=== PATIENT | female | born 1960 | race Caucasian/White ===

== ENCOUNTER 2018-11-04 19:44 | Emergency (ER) | payer MEDICAID, OTHER ==
[~2018-11-04] VITALS: Ht 157.5 cm; Wt 82.6 kg
--- NOTE | 2018-11-04 20:07 | ED Chest Pain ---
General Chief Complaint: Chest Pain Stated Complaint: CHEST PAIN Source: patient, EMS History of Present Illness Date Seen by Provider: Nov 04, 2018 Time Seen by Provider: 20:06 Initial Comments 58-year-old female presenting with complaints of chest pain and high blood pressure. She states that she feels like she had eaten to many cinnamon rolls tonight and that her COPD was flared up. She reports having had a heart attack when she was in her 20s. She reports that she was not having any of those symptoms or having a sensation tonight like when she had a heart attack in her 20s. She has not been taking any medicine for blood pressure as well as she has been having difficulty sleeping because she is out of her blood pressure medicine and the Seroquel she takes at nighttime to help her rest. She recently moved here from [facility] and has not established with a new provider locally. She is limited on getting to the local provider because she does not have a car and she is dependent on getting around in her motorized scooter. She states that she was not having any nausea tonight and was feeling much better after she got a dose of nitroglycerin which brought her blood pressure down. She can not remember all of her medicines that she takes but feels that they should be in the computer, however she has not been here before and no medicines are available in the computerized medical record for her. Allergies and Home Medications Home Medications Lisinopril 20 Mg Tablet, 20 MG PO DAILY Prescribed by: GLENDA MACIAS on 11/04/182249 Quetiapine Fumarate 300 Mg Tablet, 300 MG PO HS Prescribed by: GLENDA MACIAS on 11/04/182249 Patient Home Medication List Home Medication List Reviewed: Yes Review of Systems Review of Systems Constitutional: No chills, No dizziness, No fever, No malaise EENTM: No Blurred Vision, No Double Vision, No Nose Congestion, No Throat Pain Respiratory: Cough (chronic), Shortness of Air (chronic), Wheezing (chronic) Cardiovascular: Chest Pain (tonight but improved after nitroglycerin and bp came down) Gastrointestinal: Denies Abdominal Pain, Denies Diarrhea, Denies Nausea, Denies Vomiting Genitourinary: No Symptoms Reported Musculoskeletal: no symptoms reported Skin: no symptoms reported Psychiatric/Neurological: See HPI Past Vbaonxp-Zrqqdi-Grghag Hx Past Med/Social Hx: Reviewed Nursing Past Med/Soc Hx Patient Social History Recent Foreign Travel: No Contact w/Someone Who Travel: No Past Medical History Respiratory: Yes COPD Cardiac: Yes Heart Attack (in her 20s), Hypertension Psychosocial: Yes Sleep Difficulties, Bipolar Physical Exam Vital Signs Vital Signs - First Documented 11/04/18 20:01 Temp 98.3 Pulse 88 Resp 15 B/P (MAP) 203/85 (124) Pulse Ox 95 O2 Delivery Room Air Capillary Refill : Height, Weight, BMI Height: '" Weight: lbs. oz. kg; BMI Method: General Appearance: No Apparent Distress, WD/WN, Obese HEENT: PERRL/EOMI, Pharynx Normal Neck: Full Range of Motion, Normal Inspection, Non Tender, Supple; No Carotid Bruit Respiratory: Chest Non Tender, Lungs Clear, Normal Breath Sounds; No No Accessory Muscle Use, No No Respiratory Distress Cardiovascular: Regular Rate, Rhythm, Normal Peripheral Pulses Gastrointestinal: Normal Bowel Sounds, No Pulsatile Mass, Non Tender, Soft Rectal: Deferred Extremity: Normal Capillary Refill, Normal Inspection, Normal Range of Motion, Non Tender Neurologic/Psychiatric: Alert, Oriented x3, No Motor/Sensory Deficits Skin: Normal Color, Warm/Dry Progress/Results/Core Measures Results/Orders Lab Results Laboratory Tests Test 11/04/18 20:18 Range/Units White Blood Count 6.6 4.3-11.0 10^3/uL Red Blood Count 5.33 4.35-5.85 10^6/uL Hemoglobin 14.9 11.5-16.0 G/DL Hematocrit 45 35-52 % Mean Corpuscular Volume 85 80-99 FL Mean Corpuscular Hemoglobin 28 25-34 PG Mean Corpuscular Hemoglobin Concent 33 32-36 G/DL Red Cell Distribution Width 15.0 H 10.0-14.5 % Platelet Count 123 L 130-400 10^3/uL Mean Platelet Volume 10.2 7.4-10.4 FL Neutrophils (%) (Auto) 65 42-75 % Lymphocytes (%) (Auto) 27 12-44 % Monocytes (%) (Auto) 6 0-12 % Eosinophils (%) (Auto) 1 0-10 % Basophils (%) (Auto) 1 0-10 % Neutrophils # (Auto) 4.3 1.8-7.8 X 10^3 Lymphocytes # (Auto) 1.8 1.0-4.0 X 10^3 Monocytes # (Auto) 0.4 0.0-1.0 X 10^3 Eosinophils # (Auto) 0.1 0.0-0.3 10^3/uL Basophils # (Auto) 0.0 0.0-0.1 10^3/uL Prothrombin Time 13.7 12.2-14.7 SEC INR Comment 1.0 0.8-1.4 Activated Partial Thromboplast Time 30 24-35 SEC Sodium Level 148 H 135-145 MMOL/L Potassium Level 3.0 L 3.6-5.0 MMOL/L Chloride Level 105 98-107 MMOL/L Carbon Dioxide Level 28 21-32 MMOL/L Anion Gap 15 H 5-14 MMOL/L Blood Urea Nitrogen 13 7-18 MG/DL Creatinine 0.59 L 0.60-1.30 MG/DL Estimat Glomerular Filtration Rate > 60 BUN/Creatinine Ratio 22 Glucose Level 122 H 70-105 MG/DL Calcium Level 9.3 8.5-10.1 MG/DL Corrected Calcium 9.1 8.5-10.1 MG/DL Magnesium Level 1.9 1.8-2.4 MG/DL Total Bilirubin 0.4 0.1-1.0 MG/DL Aspartate Amino Transf (AST/SGOT) 12 5-34 U/L Alanine Aminotransferase (ALT/SGPT) 6 0-55 U/L Alkaline Phosphatase 123 40-136 U/L Troponin T 10 <=10 NG/L Pro-B-Type Natriuretic Peptide 914.1 H <75.0 PG/ML Total Protein 6.6 6.4-8.2 GM/DL Albumin 4.3 3.2-4.5 GM/DL My Orders Orders - GLENDA MACIAS MD Cbc With Automated Diff (11/04/18 20:04) Magnesium (11/04/18 20:04) Chest 1 View Ap/Pa Only (11/04/18 20:04) Ekg Tracing (11/04/18 20:04) Comprehensive Metabolic Panel (11/04/18 20:04) Protime With Inr (11/04/18 20:04) Partial Thromboplastin Time (11/04/18 20:04) O2 (11/04/18 20:04) Monitor-Rhythm Ecg Trace Only (11/04/18 20:04) Ed Iv/Invasive Line Start (11/04/18 20:04) Troponin T (11/04/18 20:04) Probnp Fs (11/04/18 20:04) Vital Signs/I&O 11/04/18 11/04/18 20:01 22:53 Temp 98.3 Pulse 88 78 Resp 15 13 B/P (MAP) 203/85 (124) 169/74 (105) Pulse Ox 95 94 O2 Delivery Room Air Room Air Progress Progress Note #1: Progress Note Obtain electrocardiogram as well as basic labs and chest x-ray. Her blood pressure has been staying down after the single nitroglycerin and she has had no further pain. Her oxygen level has been staying stable and she has not been having increased cough or shortness of breath while here in the emergency department. Progress Note #2: Progress Note ECG, Labs and CXR are all stable for her without evidence of acute myocardial infarction, pneumonia or heart failure. Pt is adamant that she is going home and that she feels fine now and that she does not need to be in the hospital or in the ED any longer. I updated her about the results and explained that she needs to get in with a provider to follow-up on everything. I counseled her on the test results and stress that she needed to be on blood pressure medicine. I prescribed lisinopril so she at least had something for blood pressure. I also wrote for some of her Seroquel so she had something to help her sleep until she can get in with the clinic to get established and get back on her regular medications. Initial ECG Impression Date: Nov 04, 2018 Initial ECG Impression Time: 19:48 Initial ECG Rate: 85 Initial ECG Rhythm: Normal Sinus Initial ECG Comparisson: No Previous ECG Available Comment Normal sinus rhythm with a heart rate 85 bpm. IA interval 164 ms. Chest QT interval of 420 ms and a QT corrected interval 400 INR milliseconds. Right atrial enlargement. There is right bundle-branch block. No acute ST elevation or ischemic changes. No prior tracing for comparison. Diagnostic Imaging Diagonstic Imaging: Xray Plain Films/CT/US/NM/MRI: chest Comments NAME: BRENT ABDULLAHI MED REC#: [id number] PT STATUS: REG ER : 1960 PHYSICIAN: GLENDA MACIAS MD ADMIT DATE: 11/04/18/ER FS Signed Date of Exam:11/04/18 CHEST 1 VIEW AP/PA ONLY INDICATION: Substernal chest pain. Time of exam: 8:10 PM The heart size is normal. The pulmonary vascularity is unremarkable. The lungs are clear. No infiltrate, effusion or pneumothorax is detected. Impression: No acute cardiopulmonary process is detected. Dictated by: Dictated on workstation # [id number] Dict: 11/04/182034 Trans: 11/04/182140 [facility] [id number] Interpreted by: KARLEE CATES MD Electronically signed by: KARLEE CATES MD 11/04/182140 Reviewed: Reviewed by Me (and reviewed the radiology report) Departure Impression Primary Impression: Hypertension Qualified Codes: I10 - Essential (primary) hypertension Additional Impressions: Non-cardiac chest pain Insomnia Qualified Codes: G47.00 - Insomnia, unspecified Disposition: HOME, SELF-CARE Condition: Stable Departure-Patient Inst. Decision time for Depature: 22:47 Referrals: NO,LOCAL PHYSICIAN (PCP) Primary Care Physician Patient Instructions: Chest Pain That Is Not Caused by the Heart (DC), High Blood Pressure (DC), Insomnia (DC), Low Cholesterol, Saturated Fat, and Trans Fat Diet , Tips for Getting Better Sleep Add. Discharge Instructions: Get established with a primary doctor to get medicines refilled. Take medicine for your blood pressure and follow a low fat bland diet. All discharge instructions reviewed with patient and/or family. Voiced understanding. Scripts Quetiapine Fumarate (Seroquel) 300 Mg Tablet 300 MG PO HS for Insomnia for 30 Days, #30 TAB 0 Refills Prov: GLENDA MACIAS MD 11/04/18 Lisinopril (Lisinopril) 20 Mg Tablet 20 MG PO DAILY for high blood pressure for 30 Days, #30 TAB 0 Refills Prov: GLENDA MACIAS MD 11/04/18 GLENDA MACIAS MD Nov 04, 2018 20:07
[2018-11-04 20:25] LABS: HEMATOCRIT 45 % (35-52); HEMOGLOBIN 14.9 G/DL (11.5-16.0); MEAN CORPUSCULAR HEMOGLOBIN 28 PG (25-34); WHITE BLOOD COUNT 6.6 10^3/uL (4.3-11.0)
[2018-11-04 20:26] LABS: BASOPHILS % (AUTO) 1 % (0-10); EOSINOPHILS # (AUTO) 0.1 10^3/uL (0.0-0.3); EOSINOPHILS % (AUTO) 1 % (0-10); LYMPHOCYTES # (AUTO) 1.8 X 10^3 (1.0-4.0); LYMPHOCYTES % (AUTO) 27 % (12-44); MEAN CORPUSCULAR HGB CONC 33 G/DL (32-36); MEAN CORPUSCULAR VOLUME 85 FL (80-99); MEAN PLATELET VOLUME 10.2 FL (7.4-10.4); MONOCYTES # (AUTO) 0.4 X 10^3 (0.0-1.0); MONOCYTES % (AUTO) 6 % (0-12); NEUTROPHILS # (AUTO) 4.3 X 10^3 (1.8-7.8); NEUTROPHILS % (AUTO) 65 % (42-75); PLATELET COUNT 123 10^3/uL (130-400)
--- NOTE | 2018-11-04 20:36 | Diagnostic Imaging Report ---
INDICATION: Substernal chest pain. Time of exam: 8:10 PM The heart size is normal. The pulmonary vascularity is unremarkable. The lungs are clear. No infiltrate, effusion or pneumothorax is detected. Impression: No acute cardiopulmonary process is detected. Dictated by: Dictated on workstation # [id number]
[2018-11-04 20:37] LABS: PROTHROMBIN TIME PATIENT 13.7 SEC (12.2-14.7)
[2018-11-04 20:48] LABS: BUN/CREATININE RATIO 22; CALCIUM 9.3 MG/DL (8.5-10.1); CARBON DIOXIDE 28 MMOL/L (21-32); CHLORIDE 105 MMOL/L (98-107); CREATININE SERUM 0.59 MG/DL (0.60-1.30); GFR ESTIMATED > 60; GLUCOSE 122 MG/DL (70-105); SODIUM 148 MMOL/L (135-145)
[2018-11-04 20:49] LABS: ALANINE AMINOTRANSFERASE 6 U/L (0-55); ALBUMIN 4.3 GM/DL (3.2-4.5); ALKALINE PHOSPHATASE 123 U/L (40-136); BILIRUBIN,TOTAL 0.4 MG/DL (0.1-1.0); MAGNESIUM 1.9 MG/DL (1.8-2.4); TOTAL PROTEIN 6.6 GM/DL (6.4-8.2)
[2018-11-04] MEDS ORDERED: LISI-552 PO (22:50)
[2018-11-04] MEDS ORDERED: QUET300T2 PO (22:50)
[2018-11-04 22:53] VITALS: BP 169/74
== END 2018-11-04 22:54 | disposition home or self-care (01) ==
LOC: EDUNIT# 19:44 → ER FS 19:50
DX: I10 Essential (primary) hypertension (principal); R07.9 Chest pain, unspecified; G47.00 Insomnia, unspecified; J44.9 Chronic obstructive pulmonary disease, unspecified; I25.2 Old myocardial infarction; F31.9 Bipolar disorder, unspecified
CPT/HCPCS: 36415; 71045; 80053; 83735; 83880; 84484; 85025; 85610; 85730; 93041

== ENCOUNTER 2020-08-14 07:27 | Inpatient (IN) | payer MEDICAID ==
[~2020-08-14] VITALS: Ht 160 cm; Wt 92.8 kg
[~2020-08-14 07:27] MED LIST: LISI-552 PO; QUET300T2 PO
--- NOTE | 2020-08-14 07:49 | Diagnostic Imaging Report ---
INDICATION: Sepsis. Respiratory distress Portable chest shows normal heart size and vascularity. There is right basilar atelectasis with patchy infiltrate seen near the costophrenic angle. There is left basilar discoid atelectasis. The upper lungs are clear. There is no effusion. IMPRESSION: There is bibasilar atelectasis with patchy right lower lobe infiltrate which is a change from a prior study from 11/04/2018. Dictated by: Dictated on workstation # [id number]
[2020-08-14 07:59] LABS: ALLENS TEST NO; VENTILATOR NO
[2020-08-14 08:02] LABS: ABG BASE EXCESS -4.3 MMOL/L (-2.5-2.5); ABG OXYGEN SATURATION 100 % (94-100); ABG PCO2 70 MMHG (35-45); ABG PO2 313 MMHG (79-93)
[2020-08-14 08:03] LABS: ABG PH 7.17 (7.37-7.43)
[2020-08-14 08:20] LABS: HEMATOCRIT 47 % (35-52); HEMOGLOBIN 15.1 G/DL (11.5-16.0); MEAN CORPUSCULAR HEMOGLOBIN 30 PG (25-34); MEAN CORPUSCULAR HGB CONC 32 G/DL (32-36); MEAN CORPUSCULAR VOLUME 95 FL (80-99)
[2020-08-14 08:21] LABS: BASOPHILS % (AUTO) 0 % (0-10); EOSINOPHILS % (AUTO) 1 % (0-10); LYMPHOCYTES % (AUTO) 15 % (12-44); MONOCYTES % (AUTO) 5 % (0-12); NEUTROPHILS # (AUTO) 6.2 X 10^3 (1.8-7.8); NEUTROPHILS % (AUTO) 78 % (42-75); PLATELET COUNT 174 10^3/uL (130-400)
[2020-08-14 08:22] LABS: LYMPHOCYTES # (AUTO) 1.2 X 10^3 (1.0-4.0); MONOCYTES # (AUTO) 0.4 X 10^3 (0.0-1.0)
--- NOTE | 2020-08-14 08:23 | Diagnostic Imaging Report ---
PROCEDURE: CT head without contrast. TECHNIQUE: Multiple contiguous axial images were obtained through the brain without the use of intravenous contrast. Auto Exposure Controls were utilized during the CT exam to meet ALARA standards for radiation dose reduction. INDICATION: Unresponsive, respiratory distress. No prior studies are available for comparison. There is a large area of encephalomalacia in left frontal lobe consistent with prior infarct. There is compensatory enlargement of the left frontal horn. No midline shift is identified. There is no sulcal effacement. No acute intra-axial or extra-axial hemorrhage is detected. Cisterns are patent. Visualized paranasal sinuses are clear. IMPRESSION: Chronic changes, as described. No acute intracranial process is detected. Dictated by: Dictated on workstation # [id number]
[2020-08-14 08:35] LABS: CLARITY,URINE SL CLOUDY; COLOR,URINE DARK YELLOW; PH,URINE 5.5 (5-9); PROTEIN,URINE NEGATIVE (NEGATIVE)
[2020-08-14 08:36] LABS: BILIRUBIN,URINE NEGATIVE (NEGATIVE); GLUCOSE, URINE (UA) NEGATIVE (NEGATIVE); KETONES,URINE NEGATIVE (NEGATIVE); LEUKOCYTE ESTERASE ,URINE TRACE (NEGATIVE)
[2020-08-14 08:40] LABS: BACTERIA,URINE LARGE /HPF; WBC,URINE 50-100 /HPF
[2020-08-14 08:41] LABS: NITRITE,URINE POSITIVE (NEGATIVE)
[2020-08-14 08:58] LABS: BUN/CREATININE RATIO 9; CARBON DIOXIDE 23 MMOL/L (21-32); CHLORIDE 109 MMOL/L (98-107); CREATININE SERUM 1.04 MG/DL (0.60-1.30); GFR ESTIMATED 54; POTASSIUM 3.2 MMOL/L (3.6-5.0); SODIUM 143 MMOL/L (135-145)
[2020-08-14 08:59] LABS: ALANINE AMINOTRANSFERASE 11 U/L (0-55); ALBUMIN 3.9 GM/DL (3.2-4.5); ALKALINE PHOSPHATASE 143 U/L (40-136); BILIRUBIN,TOTAL 0.2 MG/DL (0.1-1.0); CALCIUM 9.7 MG/DL (8.5-10.1); GLUCOSE 183 MG/DL (70-105); MAGNESIUM 1.7 MG/DL (1.6-2.4); TOTAL PROTEIN 6.2 GM/DL (6.4-8.2)
[2020-08-14 09:20] LABS: ALLENS TEST NO; INSPIRED O2 100 L CPAP; PATIENT TEMP 35.9; VENTILATOR NO
[2020-08-14 09:21] LABS: ABG BASE EXCESS -5.7 MMOL/L (-2.5-2.5); ABG OXYGEN SATURATION 84 % (94-100); ABG PCO2 65 MMHG (35-45); ABG PO2 62 MMHG (79-93); ABG TCO2 25.7 MMOL/L (21.0-31.0)
[2020-08-14 09:22] LABS: ABG PH 7.17 (7.37-7.43)
[2020-08-14 09:23] LABS: INSPIRED O2 100 L CPAP
--- NOTE | 2020-08-14 10:20 | ED General ---
General Chief Complaint: Respiratory Problems Stated Complaint: RESPIRATORY DISTRESS Nursing Triage Note: PT WAS FOUND THIS AM BY HER SLUMPED OVER HER COMPUTER DESK. EMS REPORTS SHE WAS BREATHING BUT SHALLOW AND THE EKG SUGGEST ST ELEVATION. INITIAL SATS WERE 60%, PT WAS PLACED ON A NONREBREATHER BY EMS AND SATS CAME UP TO THE UPPER 90'S. Nursing Sepsis Screen: Possible Severe Sepsis Risk Source of Information: Patient History of Present Illness Date Seen by Provider: Aug 14, 2020 Time Seen by Provider: 08:15 Initial Comments Patient is a 60-year-old female presented with decreased mental status and acute respiratory failure with hypoxia. Patient's last known normal was approximately 2300. She was last seen by her sitting at a computer desk and was found this morning at approximately 07:00 slumped over computer desk and unresponsive. On EMS arrival, the patient's GCS was 5 and her O2 saturation was in the mid 60s. The patient was placed in on nonrebreather mask and an IO established in her right leg. Patient arrives with an O2 saturation greater than 90% with shallow diminished breath sounds bilaterally. All his other history is limited due to the patient's presentation. Timing/Duration: 1/2 Hour Severity: Moderate Associated Systoms: Shortness of Air, Other Allergies and Home Medications Allergies Coded Allergies: No Known Drug Allergies (Unverified , 08/14/20) Home Medications Lisinopril 20 Mg Tablet, 20 MG PO DAILY Prescribed by: GLENDA MACIAS on 11/04/182249 Quetiapine Fumarate 300 Mg Tablet, 300 MG PO HS Prescribed by: GLENDA MACIAS on 11/04/182249 Patient Home Medication List Home Medication List Reviewed: Yes Review of Systems Review of Systems Constitutional: see HPI EENTM: see HPI Respiratory: see HPI Cardiovascular: see HPI Gastrointestinal: see HPI Musculoskeletal: see HPI Skin: see HPI Psychiatric/Neurological: See HPI Hematologic/Lymphatic: See HPI Immunological/Allergic: see HPI All Other Systems Reviewed Negative Unless Noted: Yes Past Oevwuvn-Lppipu-Zyykmg Hx Past Med/Social Hx: Reviewed Nursing Past Med/Soc Hx Patient Social History Alcohol Use: Denies Use Smoking Status: Current Everyday Smoker Type Used: Cigarettes 2nd Hand Smoke Exposure: No Recent Infectious Disease Expo: No Recent Hopitalizations: No Seasonal Allergies Seasonal Allergies: No Past Medical History Surgeries: Yes Hysterectomy, Tonsillectomy Respiratory: Yes COPD, Emphysema Cardiac: Yes Heart Attack, Hypertension Neurological: Yes Seizure Disorder : No Genitourinary: Yes Kidney Stones Gastrointestinal: No Musculoskeletal: No Endocrine: Yes Diabetes, Non-Insulin dep HEENT: No Cancer: No Psychosocial: Yes Sleep Difficulties, Bipolar Integumentary: No Blood Disorders: No Physical Exam Vital Signs Vital Signs - First Documented 08/14/20 07:30 Temp 35.0 Pulse 95 Resp 16 B/P (MAP) 109/88 (95) Pulse Ox 97 O2 Delivery Non Rebreather O2 Flow Rate 15.00 FiO2 97 Capillary Refill : Greater Than 3 Seconds Height, Weight, BMI Height: 5'2.00" Weight: 182lbs. oz. 82.289004sl; 31.00 BMI Method:Stated General Appearance: Other (Alert to tactile stimulation only.) Eyes: Bilateral Eye Normal Inspection, Bilateral Eye PERRL, Bilateral Eye EOMI HEENT: PERRL/EOMI, Normal ENT Inspection, Pharynx Normal, Other (Protecting airway) Neck: Normal Inspection, Supple Respiratory: Decreased Breath Sounds, Rhonci, Other (Slow shallow respirations) Cardiovascular: Regular Rate, Rhythm Gastrointestinal: Soft Back: Normal Inspection Extremity: Non Tender, Swelling, Other (Twin right leg) Neurologic/Psychiatric: Other (Initially obtunded but responsive to tactile stimulation. On BiPAP mentation improved alert and oriented x2 with cranial nerves grossly intact and coordinated spontaneous movement of all extremitie. ) Focused Exam Sepsis Stage: Ruled Out Possible Source: Genitouriary Lactate Level 08/14/20 07:51: Lactic Acid Level 2.61*H Time of Focused Exam: 08:20 Respiratory: Decreased Breath Sounds Cardiovascular: Regular Rate, Rhythm Capillary Refill: Less Than 3 Seconds Skin: normal color, other Lactic Acid Level Laboratory Tests Test 08/14/20 07:51 Lactic Acid Level 2.61 MMOL/L (0.50-2.00) *H Within 3hrs of presentation: Admin fluids, Blood cultures prior to ABX's (Patient not given full IV fluid bolus due to underlying congestive heart failure and respiratory failure.), Lactate level, Other Progress/Results/Core Measures Suspected Sepsis Recent Fever Within 48 Hours: No Infection Criteria Present: Suspected New Infection New/Unexplained Altered Menta: Yes Sepsis Screen: Possible Severe Sepsis Risk SIRS Temperature: Pulse: 95 Respiratory Rate: 16 Laboratory Tests 08/14/20 07:51: White Blood Count 8.0 Blood Pressure 109 /88 Mean: 95 08/14/20 07:51: Lactic Acid Level 2.61*H Laboratory Tests 08/14/20 07:42: Creatinine 1.04, Total Bilirubin 0.2 08/14/20 07:51: Platelet Count 174 08/14/20 08:25: Results/Orders Lab Results Laboratory Tests Test 08/14/20 07:42 08/14/20 07:51 08/14/20 07:58 08/14/20 08:25 Range/Units Blood Gas Puncture Site LEFT RADIAL Blood Gas Patient Temperature 35.0 Arterial Blood pH 7.17 *L 7.37-7.43 Arterial Blood Partial Pressure CO2 70 H 35-45 MMHG Arterial Blood Partial Pressure O2 313 H 79-93 MMHG Arterial Blood HCO3 26 23-27 MMOL/L Arterial Blood Total CO2 28.0 21.0-31.0 MMOL/L Arterial Blood Oxygen Saturation 100 94-100 % Arterial Blood Base Excess -4.3 L -2.5-2.5 MMOL/L Best Test NO Blood Gas Ventilator Setting NO Blood Gas Inspired Oxygen 100 L CPAP Sodium Level 143 135-145 MMOL/L Potassium Level 3.2 L 3.6-5.0 MMOL/L Chloride Level 109 H 98-107 MMOL/L Carbon Dioxide Level 23 21-32 MMOL/L Anion Gap 11 5-14 MMOL/L Blood Urea Nitrogen 9 7-18 MG/DL Creatinine 1.04 0.60-1.30 MG/DL Estimat Glomerular Filtration Rate 54 BUN/Creatinine Ratio 9 Glucose Level 183 H 70-105 MG/DL Calcium Level 9.7 8.5-10.1 MG/DL Corrected Calcium 9.8 8.5-10.1 MG/DL Magnesium Level 1.7 1.6-2.4 MG/DL Total Bilirubin 0.2 0.1-1.0 MG/DL Aspartate Amino Transf (AST/SGOT) 18 5-34 U/L Alanine Aminotransferase (ALT/SGPT) 11 0-55 U/L Alkaline Phosphatase 143 H 40-136 U/L Troponin I < 0.30 <0.30 NG/ML Pro-B-Type Natriuretic Peptide 1632.0 H <75.0 PG/ML Total Protein 6.2 L 6.4-8.2 GM/DL Albumin 3.9 3.2-4.5 GM/DL White Blood Count 8.0 4.3-11.0 10^3/uL Red Blood Count 4.96 4.35-5.85 10^6/uL Hemoglobin 15.1 11.5-16.0 G/DL Hematocrit 47 35-52 % Mean Corpuscular Volume 95 80-99 FL Mean Corpuscular Hemoglobin 30 25-34 PG Mean Corpuscular Hemoglobin Concent 32 32-36 G/DL Red Cell Distribution Width 14.2 10.0-14.5 % Platelet Count 174 130-400 10^3/uL Mean Platelet Volume 10.0 7.4-10.4 FL Immature Granulocyte % (Auto) 1 % Neutrophils (%) (Auto) 78 H 42-75 % Lymphocytes (%) (Auto) 15 12-44 % Monocytes (%) (Auto) 5 0-12 % Eosinophils (%) (Auto) 1 0-10 % Basophils (%) (Auto) 0 0-10 % Neutrophils # (Auto) 6.2 1.8-7.8 X 10^3 Lymphocytes # (Auto) 1.2 1.0-4.0 X 10^3 Monocytes # (Auto) 0.4 0.0-1.0 X 10^3 Eosinophils # (Auto) 1.0 H 0.0-0.3 10^3/uL Basophils # (Auto) 0.0 0.0-0.1 10^3/uL Immature Granulocyte # (Auto) 1.0 H 0.0-0.1 10^3/uL Lactic Acid Level 2.61 *H 0.50-2.00 MMOL/L Urine Color DARK YELLOW Urine Clarity SL CLOUDY Urine pH 5.5 5-9 Urine Specific Kincaid >=1.030 1.016-1.022 Urine Protein NEGATIVE NEGATIVE Urine Glucose (UA) NEGATIVE NEGATIVE Urine Ketones NEGATIVE NEGATIVE Urine Nitrite POSITIVE H NEGATIVE Urine Bilirubin NEGATIVE NEGATIVE Urine Urobilinogen 0.2 < = 1.0 MG/DL Urine Leukocyte Esterase TRACE H NEGATIVE Urine RBC (Auto) NEGATIVE NEGATIVE Urine RBC NONE /HPF Urine WBC 50-100 H /HPF Urine Squamous Epithelial Cells 5-10 /HPF Urine Crystals NONE /LPF Urine Bacteria LARGE H /HPF Urine Casts NONE /LPF Urine Mucus LARGE H /LPF Urine Culture Indicated CULTURE PENDING Test 08/14/20 09:15 Range/Units Blood Gas Puncture Site RT RADIAL Blood Gas Patient Temperature 35.9 Arterial Blood pH 7.17 *L 7.37-7.43 Arterial Blood Partial Pressure CO2 65 H 35-45 MMHG Arterial Blood Partial Pressure O2 62 L 79-93 MMHG Arterial Blood HCO3 24 23-27 MMOL/L Arterial Blood Total CO2 25.7 21.0-31.0 MMOL/L Arterial Blood Oxygen Saturation 84 L 94-100 % Arterial Blood Base Excess -5.7 L -2.5-2.5 MMOL/L Best Test NO Blood Gas Ventilator Setting NO Blood Gas Inspired Oxygen 100 L CPAP My Orders Orders - WILL GIFFORD DO Cbc With Automated Diff (08/14/20 07:33) Comprehensive Metabolic Panel (08/14/20 07:33) Blood Culture (08/14/20 07:33) Sputum Culture (08/14/20 07:33) Urinalysis (08/14/20 07:33) Urine Culture (08/14/20 07:33) Protime With Inr (08/14/20 07:33) Partial Thromboplastin Time (08/14/20 07:33) Chest 1 View Ap/Pa Only (08/14/20 07:33) Ed Iv/Invasive Line Start (08/14/20 07:33) Ed Iv/Invasive Line Start (08/14/20 07:33) Vital Signs Adult Sepsis Patie Q15M (08/14/20 07:33) O2 (08/14/20 07:33) Remove Rings In Anticipation O (08/14/20 07:33) Lactic Acid Analyzer (08/14/20 07:33) Accucheck Fasting (08/14/20 07:33) Ammonia (08/14/20 07:33) Ct Head Wo (08/14/20 07:33) Gutierrez Cath (08/14/20 07:33) Probnp Fs (08/14/20 07:33) Troponin I Fs (08/14/20 07:33) Magnesium (08/14/20 07:33) Arterial Blood Gas (08/14/20 07:47) Arterial Blood Gas (08/14/20 09:00) Vital Signs/I&O 08/14/20 08/14/20 07:30 07:30 Temp 35.0 Pulse 95 Resp 16 B/P (MAP) 109/88 (95) Pulse Ox 97 97 O2 Delivery Non Rebreather Non Rebreather O2 Flow Rate 15.00 15.00 FiO2 97 Capillary Refill : Greater Than 3 Seconds Blood Pressure Mean: 95 Departure Communication (Admissions) CT head: No acute findings per radiology report. Chest x-ray: No acute cardiopulmonary disease per radiology report EKG: Bifascicular block limiting interpretation. Patient with respiratory failure with the diminished respiratory effort significant improved on BiPAP. Patient is ANO x2 with movement of all extremities. Vital signs are stable with O2 saturation greater than 90%. Patient is in heart failure likely contributing to evening's events. Diuresis given. Although patient's respiratory status patient remains acidotic. Case reviewed in consultation with who agrees to admit and Dr. Mcgee who agrees to consult. Recommendations are to maintain current care and to transfer while on BiPAP to [facility] ICU. Patient remains in critical condition with stable vital signs and ability to protect airway. Critical care time: 35 minutes. Impression Primary Impression: Altered mental status Additional Impressions: Acute respiratory failure with hypoxia and hypercapnia Acute congestive heart failure Metabolic acidosis Urinary tract infection Disposition: ADMITTED INPATIENT Condition: Critical Admissions Decision to Admit Reason: Admit from ER (General) Decision to Admit/Date: Aug 14, 2020 Time/Decision to Admit Time: 09:40 (Dr. Mcneil.) Transfer Transfer Reason: Exceeds level of care Departure-Patient Inst. Referrals: LOREE NARANJO APRN (PCP) Primary Care Physician [facility] (Family) Primary Care Physician WILL GIFFORD DO Aug 14, 2020 10:20
[2020-08-14] MEDS ORDERED: VANCOMYCIN INJECTION 1,000 MG in NS (IVPB) 250 ML IV ONE (10:45)
[2020-08-14] MEDS ORDERED: methylPREDNISolone 125 MG (Solu-MEDROL) VIAL IVP ONE (11:00)
[2020-08-14] MEDS ORDERED: FUROSEMIDE 40 MG/4 ML INJ (LASIX) IVP ONE (11:00)
[2020-08-14] MEDS ORDERED: PIPERACILLIN SODIUM/TAZOBACTAM 4.5 GM in NS (IVPB) 100 ML IV ONE (11:00)
[2020-08-14 11:18] LABS: AMPHETAMINE SCREEN, URINE NEGATIVE (NEGATIVE); BARBITURATE SCREEN URINE NEGATIVE (NEGATIVE); BENZODIAZEPINES SCREEN URINE POSITIVE (NEGATIVE); CANNABINOID SCREEN, URINE NEGATIVE (NEGATIVE); COCAINE SCREEN URINE NEGATIVE (NEGATIVE); METHADONE STAT NEGATIVE (NEGATIVE); METHAMPHETAMINE SCREEN URINE S NEGATIVE (NEGATIVE); OPIATE SCREEN URINE NEGATIVE (NEGATIVE); OXYCODONE STAT NEGATIVE (NEGATIVE); PROPOXYPHENE STAT NEGATIVE (NEGATIVE); TRICYCLIC ANTIDEPRESSANTS SCRE POSITIVE (NEGATIVE)
--- NOTE | 2020-08-14 14:17 | Pulmonary Consultation ---
History of Present Illness History of Present Illness Date Seen by Provider: Aug 14, 2020 Time Seen by Provider: 14:14 Date of Admission History of Present Illness 60yo found unresponsive by slumped over at computer desk. Upon ED arrival pt was found to be hypoxic with Sp02 in the 60% and pt was placed on a NRB. Patient's last known normal was approximately 2300. On EMS arrival, the patient's GCS was 5 and her O2 saturation was in the mid 60s. The patient was placed in on nonrebreather mask and an IO established in her right leg. Pt is now requiring BiPAP. Allergies and Home Medications Allergies Coded Allergies: No Known Drug Allergies (Unverified , 08/14/20) Home Medications Lisinopril 20 Mg Tablet, 20 MG PO DAILY Prescribed by: GLENDA MACIAS on 11/04/182249 Quetiapine Fumarate 300 Mg Tablet, 300 MG PO HS Prescribed by: GLENDA MACIAS on 11/04/182249 Past Owmqqel-Brajiu-Mrgbwh Hx Past Med/Social Hx: Reviewed Nursing Past Med/Soc Hx Patient Social History Alcohol Use: Denies Use Smoking Status: Former Smoker Type Used: Cigarettes 2nd Hand Smoke Exposure: No Recent Infectious Disease Expo: No Recent Hopitalizations: No Have you traveled recently?: No Alcohol Use?: No Seasonal Allergies Seasonal Allergies: No Past Medical History Surgeries: Yes Hysterectomy, Tonsillectomy Respiratory: Yes COPD, Emphysema Cardiac: Yes Heart Attack, Hypertension Neurological: Yes Seizure Disorder : No Genitourinary: Yes Kidney Stones Gastrointestinal: No Musculoskeletal: No Endocrine: Yes Diabetes, Non-Insulin dep HEENT: No Cancer: No Psychosocial: Yes Sleep Difficulties, Bipolar Integumentary: No Blood Disorders: No Sepsis Event Evaluation Height, Weight, BMI Height: 5'2.00" Weight: 182lbs. oz. 82.389222rc; 31.25 BMI Method:Stated Exam Exam Vital Signs Date Time Temp Pulse Resp B/P (MAP) Pulse Ox O2 Delivery O2 Flow Rate FiO2 08/14/20 13:19 NIV Bilevel 50 08/14/20 12:30 35.3 74 16 151/82 (105) 100 NIV Bilevel 50.00 08/14/20 11:21 36.3 68 18 116/89 100 NIV CPAP 100.00 08/14/20 07:30 97 Non Rebreather 15.00 97 08/14/20 07:30 35.0 95 16 109/88 (95) 97 Non Rebreather 15.00 Height & Weight Height: 5'2.00" Weight: 182lbs. oz. 82.622488tg; 31.25 BMI Method:Stated General Appearance: Other (Alert to tactile stimulation only.) HEENT: PERRL/EOMI, Normal ENT Inspection, Pharynx Normal, Other (Protecting airway) Neck: Normal Inspection, Supple Respiratory: Decreased Breath Sounds Cardiovascular: Regular Rate, Rhythm Capillary Refill: Less Than 3 Seconds Extremity: Non Tender, Swelling, Other (Twin right leg) Neurologic/Psychiatric: Other (Initially obtunded but responsive to tactile stimulation. On BiPAP mentation improved alert and oriented x2 with cranial nerves grossly intact and coordinated spontaneous movement of all extremitie. ) Results Lab Laboratory Tests 08/14/20 07:42 08/14/20 07:51 Assessment/Plan Assessment/Plan Acute respiratory failure -repeat ABG now -Influenza is negative Metabolic lactic acidosis -Improving Metabolic encephalopathy -UDS is positive for Benzos and TCAs -Monitor -Repeat ABG -Ammonia pending CHF -Monitor NORM PINTO DO Aug 14, 2020 14:17
[2020-08-14 14:36] VITALS: BP 116/83
[2020-08-14 14:50] LABS: ABG BASE EXCESS -0.9 MMOL/L (-2.5-2.5); ABG OXYGEN SATURATION 99 % (94-100); ABG PCO2 60 MMHG (35-45); ABG PO2 123 MMHG (79-93); ABG TCO2 27.6 MMOL/L (21.0-31.0)
[2020-08-14 14:52] LABS: ABG PH 7.25 (7.37-7.43); INSPIRED O2 50%; VENTILATOR NO
[2020-08-14 14:53] LABS: PATIENT TEMP 35.9
[2020-08-14 15:18] LABS: AMMONIA 56 UMOL/L (11-32)
[2020-08-14] MEDS ORDERED: ENAL20TA16 PO (15:53)
[2020-08-14] MEDS ORDERED: LORA10TA7 PO (15:53)
[2020-08-14] MEDS ORDERED: OMEP20CA18 PO (15:53)
[2020-08-14] MEDS ORDERED: ROFL500T PO (15:53)
[2020-08-14] MEDS ORDERED: ATOR20TA66 PO (15:53)
[2020-08-14] MEDS ORDERED: DIAZ5TAB49 PO (15:53)
[2020-08-14] MEDS ORDERED: QUET100T33 PO (15:53)
[2020-08-14] MEDS ORDERED: CARB200C6 PO (15:53)
[2020-08-14] MEDS ORDERED: DILT240C91 PO (15:53)
[2020-08-14] MEDS ORDERED: MONT10TA97 PO (15:53)
[2020-08-14] MEDS ORDERED: IPRA4AER INH (15:53)
[2020-08-14] MEDS ORDERED: RT-ALBUINH INH (15:53)
[2020-08-14] MEDS ORDERED: VENL75CA93 PO (15:53)
[2020-08-14] MEDS ORDERED: UMEC1BLS INH (15:53)
[2020-08-14] MEDS ORDERED: QUET300T44 PO (15:53)
[2020-08-14] MEDS ORDERED: PRAZ2CAP2 PO (15:53)
[2020-08-14] MEDS ORDERED: TOPI50TA13 PO (15:53)
[2020-08-14] MEDS ORDERED: LEVO75TA6 PO (15:53)
--- NOTE | 2020-08-14 15:53 | NUR ---
UNABLE TO SPEAK WITH THE PT- CALLED HER ALISIA AND WENT THRU THE EXT MED HISTORY TO COMPLETE THE MED REC ALISIA WAS ABLE TO NAME ALL THE PTS MEDICATIONS WELL WHEN/HOW SHE TAKES EACH OTC MEDS: NONE Addendum: 08/14/20 at 1609 by VARUN ANG waste management engineer WHEN I SPOKE WITH ALISIA SAID THE PT WAS TAKING DILTIAZEM ER 240MG AND THEN LATER TOLD ME SHE WAS TAKING CARTIA XT 240MG (THE CARTIA HAD BEEN FILLED ON 05-13-2020 #90/90DS AND DILTIAZEM FILLED ON 08-06-2020 #90/90DS). I ASKED ALISIA IF HE THOUGHT BRENT HAD BEEN TAKING BOTH AND HE WASNT SURE BUT DID SAY THAT FAR HE KNEW SHE WAS TAKING EVERYTHING IN HER MED TOTE. I DID ALERT DR. CASILLAS TO A POSSIBLE DUPLICATE MED
[2020-08-14] MEDS ORDERED: RT-ALBUTEROL INHALER HFA (VENTOLIN HFA) 18 GM IH PRN (16:30)
[2020-08-14] MEDS ORDERED: NS IV 1000 ML 1,000 ML ONE (16:38)
[2020-08-14] MEDS: cefTRIAXone FOR IV USE 1,000 MG in WATER (STERILE) FOR INJECTION 10 ML IV SCH (16:49)
[2020-08-14] MEDS: POTASSIUM CL 10MEQ/50ML IVPB 50 ML IV SCH ×2 (16:53→18:27)
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
[2020-08-14] MEDS ORDERED: ENOXAPARIN 40 MG/0.4 ML (LOVENOX) SYR ONE (17:58)
[2020-08-14] MEDS: IPRATROPIUM INHALER (ATROVENT) 12.9 GM INH SCH ×2 (18:00→21:43)
[2020-08-14] MEDS: ENOXAPARIN 40 MG/0.4 ML (LOVENOX) SYR SQ SCH ×2 (18:28→18:34)
[2020-08-14 18:40] VITALS: BP 140/94
[2020-08-14] MEDS: RT-ALBUTEROL INHALER HFA (VENTOLIN HFA) 18 GM IH SCH ×2 (18:40→21:43)
[2020-08-14] MEDS: IPRATROPIUM INHALER (ATROVENT) 12.9 GM INH PRN (18:40)
[2020-08-14 18:57] VITALS: BP 140/94
[2020-08-14] MEDS: VENlafaxine XR 75 MG (EFFEXOR XR) CAP PO SCH (20:32)
[2020-08-14] MEDS: carBAMazepine 200 MG (TEGretol) TAB PO SCH (20:33)
[2020-08-14 21:43] VITALS: BP 168/140
[2020-08-14 21:44] VITALS: BP 168/140
[2020-08-14] MEDS ORDERED: FUROSEMIDE 40 MG/4 ML INJ (LASIX) IVP SCH (23:00)
[2020-08-15] MEDS: RT-ALBUTEROL INHALER HFA (VENTOLIN HFA) 18 GM IH SCH ×6 (01:42→22:12)
[2020-08-15 01:43] VITALS: BP_SYST 168; BP_SYST 173; BP_DIAS 140; BP_DIAS 78
[2020-08-15] MEDS: IPRATROPIUM INHALER (ATROVENT) 12.9 GM INH SCH ×6 (01:43→22:12)
[2020-08-15 03:39] LABS: ABG OXYGEN SATURATION 79 % (94-100); ABG PCO2 57 MMHG (35-45); ABG PO2 49 MMHG (79-93); ABG TCO2 29.5 MMOL/L (21.0-31.0); BASOPHILS % (AUTO) 0 % (0-10); EOSINOPHILS % (AUTO) 0 % (0-10); HEMATOCRIT 42 % (35-52); HEMOGLOBIN 13.5 g/dL (11.5-16.0); LYMPHOCYTES # (AUTO) 0.8 10^3/uL (1.0-4.0); LYMPHOCYTES % (AUTO) 13 % (12-44); MEAN CORPUSCULAR HEMOGLOBIN 30 pg (25-34); MEAN CORPUSCULAR HGB CONC 32 g/dL (32-36); MEAN CORPUSCULAR VOLUME 94 fL (80-99); MEAN PLATELET VOLUME 10.1 fL (9.0-12.2); MONOCYTES # (AUTO) 0.3 10^3/uL (0.0-1.0); MONOCYTES % (AUTO) 5 % (0-12); NEUTROPHILS # (AUTO) 4.9 10^3/uL (1.8-7.8); NEUTROPHILS % (AUTO) 81 % (42-75); PLATELET COUNT 129 10^3/uL (130-400); WHITE BLOOD COUNT 6.1 10^3/uL (4.3-11.0)
[2020-08-15 03:40] LABS: ABG PH 7.31 (7.37-7.43); ALLENS TEST POSITIVE
[2020-08-15 03:41] LABS: INSPIRED O2 40%; PATIENT TEMP 36.5; VENTILATOR YES
[2020-08-15 03:59] LABS: BUN/CREATININE RATIO 13; CALCIUM 8.6 MG/DL (8.5-10.1); CARBON DIOXIDE 24 MMOL/L (21-32); CHLORIDE 109 MMOL/L (98-107); CREATININE SERUM 0.75 MG/DL (0.60-1.30); GFR ESTIMATED > 60; GLUCOSE 128 MG/DL (70-105); MAGNESIUM 1.9 MG/DL (1.6-2.4); PHOSPHORUS 4.2 MG/DL (2.3-4.7); POTASSIUM 4.1 MMOL/L (3.6-5.0); SODIUM 146 MMOL/L (135-145)
--- NOTE | 2020-08-15 04:54 | Pulmonary Progress Note ---
Subjective Time Seen by a Provider: 04:47 Subjective/Events-last exam Pt is currently requiring BiPAP Sepsis Event Evaluation Height, Weight, BMI Height: 5'2.00" Weight: 182lbs. oz. 82.566197oo; 31.25 BMI Method:Stated Focused Exam Lactate Level 08/14/20 07:51: Lactic Acid Level 2.61*H 08/14/20 10:13: Lactic Acid Level 1.25 Time of Focused Exam: 08:20 Exam Exam Vital Signs Date Time Temp Pulse Resp B/P (MAP) Pulse Ox O2 Delivery O2 Flow Rate FiO2 08/15/20 04:00 81 11 178/94 (122) 97 NIV Bilevel 50.00 08/15/20 03:00 76 13 176/86 (116) 97 NIV Bilevel 50.00 08/15/20 02:00 75 11 176/87 (116) 98 NIV Bilevel 50.00 08/15/20 01:43 70 17 98 40.00 08/15/20 01:43 70 17 98 40.00 08/15/20 01:00 86 08/15/20 01:00 84 13 168/76 (106) 100 NIV Bilevel 50.00 08/15/20 00:00 75 15 185/95 (125) 98 NIV Bilevel 50.00 08/14/20 23:00 74 18 184/97 (126) 98 NIV Bilevel 50.00 08/14/20 22:00 69 12 156/90 (112) 98 NIV Bilevel 50.00 08/14/20 21:44 70 17 98 40.00 08/14/20 21:43 70 17 98 40.00 08/14/20 21:00 71 18 164/90 (114) 99 NIV Bilevel 50.00 08/14/20 21:00 98 NIV Bilevel 40 08/14/20 20:00 64 12 160/92 (114) 97 NIV Bilevel 50.00 08/14/20 19:00 36.0 08/14/20 19:00 66 08/14/20 19:00 67 10 143/85 (104) 98 NIV Bilevel 50.00 08/14/20 18:57 69 17 99 40.00 08/14/20 18:40 69 17 99 40.00 08/14/20 18:00 66 25 139/90 (106) 97 NIV Bilevel 50.00 08/14/20 17:00 63 31 133/79 (97) 95 NIV Bilevel 50.00 08/14/20 16:00 58 8 123/80 (94) 94 NIV Bilevel 50.00 08/14/20 16:00 97 NIV Bilevel 50 08/14/20 15:42 36.2 08/14/20 15:00 64 12 138/79 (98) 97 NIV Bilevel 50.00 08/14/20 14:36 72 17 99 50.00 08/14/20 14:00 60 8 111/74 (86) 96 NIV Bilevel 50.00 08/14/20 13:19 NIV Bilevel 50 08/14/20 13:00 71 35 139/95 (110) 94 NIV Bilevel 50.00 08/14/20 12:44 71 08/14/20 12:40 73 19 100 50.00 08/14/20 12:30 35.3 74 16 151/82 (105) 100 NIV Bilevel 50.00 08/14/20 11:21 36.3 68 18 116/89 100 NIV CPAP 100.00 08/14/20 07:30 97 Non Rebreather 15.00 97 08/14/20 07:30 35.0 95 16 109/88 (95) 97 Non Rebreather 15.00 I & O 08/15/20 07:00 Intake Total 200 ml Output Total 1995 ml Balance -1795 ml Height & Weight Height: 5'2.00" Weight: 182lbs. oz. 82.599913hl; 31.25 BMI Method:Stated General Appearance: Other (Alert to tactile stimulation only.) HEENT: PERRL/EOMI, Normal ENT Inspection, Pharynx Normal, Other (Protecting airway) Neck: Normal Inspection, Supple Respiratory: Decreased Breath Sounds Cardiovascular: Regular Rate, Rhythm Capillary Refill: Less Than 3 Seconds Gastrointestinal: normal bowel sounds, non tender, soft Extremity: Non Tender, Swelling, Other (Twin right leg) Neurologic/Psychiatric: Other (Initially obtunded but responsive to tactile stimulation. On BiPAP mentation improved alert and oriented x2 with cranial ne rves grossly intact and coordinated spontaneous movement of all extremitie. ) Results Lab Laboratory Tests 08/14/20 07:42 08/14/20 07:51 08/15/20 03:25 Assessment/Plan Assessment/Plan Acute respiratory failure -BiPAP -- 40% -repeat ABG now -Influenza is negative -Check CTA -Echo pending Hypernatremia -Hold lasix -Start 1/2 NS at 50 -monitor Metabolic lactic acidosis -Improving Metabolic encephalopathy -UDS is positive for Benzos and TCAs -Monitor -Repeat ABG -Ammonia pending CHF -Monitor NORM PINTO DO Aug 15, 2020 04:54
[2020-08-15] MEDS ORDERED: 1/2 NS IV SOLUTION 1,000 ML IV SCH (05:00)
[2020-08-15] MEDS: hydrALAZINE (APESOLINE) 20 MG/ML VIAL IV PRN ×3 (05:18→17:29)
[2020-08-15] MEDS ORDERED: POTASSIUM CL 10MEQ/50ML IVPB 50 ML IV SCH (06:00)
[2020-08-15] MEDS ORDERED: KCL 20 MEQ TAB (K-DUR) PO SCH (06:00)
[2020-08-15] MEDS ORDERED: MAGNESIUM 1 GM/100 ML IVPB 100 ML IV SCH (06:00)
--- NOTE | 2020-08-15 07:50 | Diagnostic Imaging Report ---
INDICATION: Exacerbation of congestive heart failure. AP view of the chest is obtained with comparison made to study of one day earlier. Overall heart size and pulmonary vascularity are within normal limits. There is an increase in right hilar density which could be related to infiltrates. Underlying adenopathy or mass could contribute. There is no evidence of pneumothorax or significant pleural fluid. IMPRESSION: Increasing density in the right hilum possibly due to infiltrate. Followup PA and lateral views of the chest would be useful. Dictated by: Dictated on workstation # [id number]
[2020-08-15] MEDS ORDERED: IOHEXOL 350 MG/ML 100 ML (OMNIPAQUE 350) VIAL IV ONE (08:15)
[2020-08-15] MEDS ORDERED: CATHETER FLUSH 10 ML SYR IV PRN (08:15)
[2020-08-15] MEDS ORDERED: HOLD METFORMIN - RECEIVED CONTRAST 20 ML VIAL IV SCH (08:15)
[2020-08-15] MEDS ORDERED: NS 100 ML (IVPB) BAG IV ONE (08:15)
[2020-08-15] MEDS: toPIRamate 25 MG (TOPAMAX) TAB PO SCH (09:05)
[2020-08-15] MEDS: ROFLUMILAST 500 MCG TAB (DALIRESP) PO SCH (09:05)
[2020-08-15] MEDS: LEVOTHYROXINE 75 MCG (LEVOTHROID) TABLET PO SCH (09:05)
[2020-08-15] MEDS: ENALAPRIL 10 MG (VASOTEC) TAB PO SCH (09:06)
[2020-08-15] MEDS: carBAMazepine 200 MG (TEGretol) TAB PO SCH ×2 (09:06→21:34)
[2020-08-15] MEDS: LORATADINE (CLARITIN) 10 MG TAB PO SCH (09:06)
[2020-08-15] MEDS: PANTOPRAZOLE 20 MG TABLET (PROTONIX) PO SCH (09:07)
[2020-08-15] MEDS: MONTELUKAST 10 MG (SINGULAIR) TAB PO SCH (09:07)
--- NOTE | 2020-08-15 10:34 | Diagnostic Imaging Report ---
PROCEDURE: CT angiography of the chest with contrast. TECHNIQUE: Multiple contiguous axial images were obtained through the chest after uneventful bolus administration of intravenous contrast. 3D reconstructed CTA MIP acquisitions were also performed. Auto Exposure Controls were utilized during the CT exam to meet ALARA standards for radiation dose reduction. INDICATION: Shortness of air. COPD. COMPARISON: Chest radiograph 08/15/2020. FINDINGS: Examination limited by respiratory motion. No large or central pulmonary artery filling defects. No thoracic aortic aneurysm or dissection. Moderate atherosclerotic calcifications including coronary. Borderline heart size. No pericardial effusion. Prominent mediastinal lymph nodes remain subcentimeter in short axis dimension. No focal pulmonary opacity. Mild atelectasis in the dependent lungs. No pleural effusion or pneumothorax. No endobronchial lesions. No acute osseous findings. Several low-attenuation well-circumscribed lesions in the liver, likely represent benign cysts. Borderline splenomegaly. There are inflammatory changes about the pancreas which is partially visualized. IMPRESSION: 1. A large or central pulmonary emboli. 2. Mild dependent atelectasis in the lung bases. The lungs are otherwise clear. 3. Inflammatory changes about the pancreas which is partially visualized. Recommend correlation with serum enzymes. This could also be better evaluated with dedicated abdomen and pelvis CT. Dictated by: Dictated on workstation # [id number]
--- NOTE | 2020-08-15 11:15 | NUR ---
PT STATED THAT SHE WANTED TO GO HOME. PT WAS ALERT AND ORIENTED AT THIS TIME. EDUCATED PT THAT DUE TO THE AMOUNT OF O2 THAT SHE IS CURRENTLY REQUIRING TO MAINTAIN HER O2 SATS AND BEING THAT SHE PREVIOUSLY DID NOT REQUIRE O2, IT WOULD NOT BE ADVISED TO LEAVE AT THIS TIME AND TO WAIT UNTIL THE PHYSICIAN FELT THAT SHE WAS READY FOR DC. PT VERBALIZED UNDERSTANDING. PT STATED THAT SHE DID NOT KNOW ABOUT STAYING. CONTINUED TO EDUCATE PT IN REFRENCE TO THE EVENT THAT BROUGHT HER TO THE ED, HER MENTAL STATUS AT THAT TIME, HER RESPIRATORY STATUS AT THAT TIME AND THAT IF SHE LEFT BEFORE SHE WAS READY, THAT SHE COULD COMPROMISE HERSELF AGAIN. EDUCATED PT ON LEAVING AGAINST MEDICAL ADVICE. PT VERBALIZED UNDERSTANDING.
--- NOTE | 2020-08-15 11:52 | Physician Query Clarification ---
PQ-CHF Specificity Admission Date: Aug 14, 2020 at 12:25 Discharge Date: Dr. Mcneil, The medical record reflects the following clinical scenario: History/Risk Factors: acute respiratory failure w/hypoxia and hypercapnia, HTN, CHF, emphysema, UTI Clinical Findings: BNP 432.8 Treatment: 40 mg IVP Lasix Question: Can you further specify the acuity &/or type of CHF per the clinical indicators above? Please document a response in the Progress Notes or Discharge Summary. 1. Acuity: Acute, Chronic or Acute on Chronic 2. Type: Systolic, Diastolic or Systolic & Diastolic 3. Unspecified: CHF cannot be further specified regarding type or acuity 4. Other, with explanation of clinical findings 5. Clinically undetermined, no explanation for clinical findings PHYSICIAN RESPONSE Acuity: Acute on Chronic Type: Diastolic Please remember a lack of response to the above will prompt a phone page by [facility]/Coding staff. In responding to this query, please exercise your independent professional judgment. The purpose of this communication is to more accurately reflect the complexity of your patients condition. The fact that a question is asked does not imply that any particular answer is desired or expected. Thank you for your timely response to this clarification. Requestors name: [email or web address] THIS PHYSICIAN QUERY FORM IS A PERMANENT PART OF THE MEDICAL RECORD ABHISHEK KNOWLES Aug 15, 2020 11:52 MELANIE MCNEIL MD Aug 15, 2020 21:11
--- NOTE | 2020-08-15 14:15 | NUR ---
REPORT RECEIVED FROM [facility] ICU
[2020-08-15] MEDS: cefTRIAXone FOR IV USE 1,000 MG in WATER (STERILE) FOR INJECTION 10 ML IV SCH (14:18)
--- NOTE | 2020-08-15 14:25 | NUR ---
PT ARRIVED TO ROOM VIA BED, CALL LIGHT IN REACH, BED LOW. PT ORIENTED TO ROOM, DENIES NEEDS AT THIS TIME. WILL CONTINUE TO MONITOR
[2020-08-15 16:00] VITALS: BP 180/80
--- NOTE | 2020-08-15 17:16 | Progress Note ---
Subjective Subjective/Events-last exam Afebrile, states she is feeling well, hopeful to go home soon. Focused Exam Lactate Level 08/14/20 07:51: Lactic Acid Level 2.61*H 08/14/20 10:13: Lactic Acid Level 1.25 Time of Focused Exam: 08:20 Objective Exam Last Set of Vital Signs Vital Signs Date Time Temp Pulse Resp B/P (MAP) Pulse Ox O2 Delivery O2 Flow Rate FiO2 08/15/20 14:44 High Flow N/C 4.00 08/15/20 14:06 96 08/15/20 14:00 87 20 173/76 (108) 08/15/20 12:16 36.3 08/14/20 21:00 40 Capillary Refill : Less Than 3 SecondsLess Than 3 Seconds I&O Intake and Output 08/15/20 00:00 Intake Total 200 ml Output Total 1395 ml Balance -1195 ml Intake Oral 0 ml IV Total 200 ml Output Urine Total 1395 ml Daily Weight Change No General: Alert, No Acute Distress Lungs: Other (ronchi) Heart: Regular Rate, No Murmurs Abdomen: Normal Bowel Sounds, Soft Neuro: Normal Speech Psych/Mental Status: Mood NL Results/Procedures Lab Laboratory Tests 08/15/20 00:52: Glucometer 139H 08/15/20 03:25: White Blood Count 6.1, Red Blood Count 4.47, Hemoglobin 13.5, Hematocrit 42, Mean Corpuscular Volume 94, Mean Corpuscular Hemoglobin 30, Mean Corpuscular Hemoglobin Concent 32, Red Cell Distribution Width 13.4, Platelet Count 129L, Mean Platelet Volume 10.1, Immature Granulocyte % (Auto) 1, Neutrophils (%) (Auto) 81H, Lymphocytes (%) (Auto) 13, Monocytes (%) (Auto) 5, Eosinophils (%) (Auto) 0, Basophils (%) (Auto) 0, Neutrophils # (Auto) 4.9, Lymphocytes # (Auto) 0.8L, Monocytes # (Auto) 0.3, Eosinophils # (Auto) 0.0, Basophils # (Auto) 0.0, Immature Granulocyte # (Auto) 0.1, Blood Gas Puncture Site RIGHT RADIAL, Blood Gas Patient Temperature 36.5, Arterial Blood pH 7.31*L, Arterial Blood Partial Pressure CO2 57H, Arterial Blood Partial Pressure O2 49L, Arterial Blood HCO3 28H, Arterial Blood Total CO2 29.5, Arterial Blood Oxygen Saturation 79L, Arteri al Blood Base Excess 2.0, Best Test POSITIVE, Blood Gas Ventilator Setting YES, Blood Gas Inspired Oxygen 40%, Sodium Level 146H, Potassium Level 4.1, Chloride Level 109H, Carbon Dioxide Level 24, Anion Gap 13, Blood Urea Nitrogen 10, Creatinine 0.75, Estimat Glomerular Filtration Rate > 60, BUN/Creatinine Ratio 13, Glucose Level 128H, Calcium Level 8.6, Phosphorus Level 4.2, Magnesium Level 1.9, B-Type Natriuretic Peptide 432.8H Microbiology 08/14/20 Influenza Types A,B Antigen (SUNIL) - Final, Complete 08/14/20 Blood Culture - Preliminary, Resulted No growth 08/14/20 Urine Culture - Preliminary, Resulted Escherichia coli Radiology CXR 08/14/20: IMPRESSION: There is bibasilar atelectasis with patchy right lower lobe infiltrate which is a change from a prior study from 11/04/2018. CT head 08/14/20: DRAFT IMPRESSION: Chronic changes, as described. No acute intracranial process is detected. Assessment/Plan Assessment/Plan (1) Acute respiratory failure with hypoxia and hypercapnia Status: Acute Assessment & Plan: Uncertain inciting event. CXR with possible infiltrate, is on ceftriaxone. Possibly sleep apnea with CO2 retention. COVID LYNDA negative, PCR pending. Afebrile, no leukocytosis does not appear to have sepsis. 2/4 improved with bipap overnight, on supplemental oxygen this morning. Denies history of apnea, reports having been tested in the past. (2) Altered mental status Status: Resolved Assessment & Plan: Secondary to hypercapnia, improving with bipap. CT head okay. TSH okay. No marked electrolyte derangements. Qualifiers: Qualified Codes: R40.0 - Somnolence (3) Respiratory acidosis Status: Acute Assessment & Plan: Severe with pH 7.17 on admit and PCO2 70. Slow to respond to bipap with repeat pH 7.17, bicarb on ABG normal, lactic acid only mildly braden vated and resolved quickly. After ICU arrival, repeat ABG with pH improved to 7.25 and pCO2 60, continue bipap. Appreciate Dr. Mcgee's recommendations. 2/4 continued improvement with more bipap overnight, pH 7.34 (4) Urinary tract infection Status: Acute Assessment & Plan: Ceftriaxone Qualifiers: Qualified Codes: N30.00 - Acute cystitis without hematuria (5) COPD (chronic obstructive pulmonary disease) Status: Chronic Assessment & Plan: Resume home daliresp. Albuterol, ipratropium. (6) Hypertension Status: Chronic Assessment & Plan: Resume home medications. Qualifiers: Qualified Codes: I10 - Essential (primary) hypertension (7) Congestive heart failure Status: Chronic Assessment & Plan: Reports history of CHF, no records in clinic chart of recent echo or Cardiology visits, records were requested when she established care. BNP elevated, started in IV lasix. Check echo. (8) Hypothyroidism Status: Chronic Assessment & Plan: Resume home levothyroxine (9) Fibromyalgia Status: Chronic Assessment & Plan: Holding any sedating medications for now. (10) Seizure disorder Status: Chronic Assessment & Plan: Resume home carbamazepine. (11) Hypokalemia Status: Acute Assessment & Plan: Replace and follow. (12) DVT prophylaxis Status: Acute Assessment & Plan: Enoxaparin MELANIE CASILLAS MD Aug 15, 2020 17:16
[2020-08-15] MEDS: ENOXAPARIN 40 MG/0.4 ML (LOVENOX) SYR SQ SCH (17:51)
[2020-08-15 20:00] VITALS: BP 175/77
[2020-08-15] MEDS: VENlafaxine XR 75 MG (EFFEXOR XR) CAP PO SCH (21:34)
[2020-08-15] MEDS: PRAZOSIN 1 MG CAPSULE (MINIPRESS) NON-FORMULARY PO SCH (21:34)
[2020-08-16] VITALS (9 sets, daily range): BP systolic 146–217; BP diastolic 67–97
--- NOTE | 2020-08-16 01:20 | NUR ---
THIS RN ENTERED ROOM AND FOUND THAT PATIENT HAD REMOVED MELO CATHETER HERSELF, BALLOON STILL INFLATED AND INTACT, 125 ML LEFT IN MELO BAG. PT ALERT AND ORIENTED WITH ANGRY, HOSTILE MOOD. WHEN QUESTIONED, STATED SHE NO LONGER NEEDS THE CATHETER AND THAT SHE WOULD LIKE TO GO HOME. THIS RN EDUCATED PT ON RISKS INVOLVED WHEN LEAVING AGAINST MEDICAL ADVICE AND ADVISED THAT SHE STAY FOR THE REMAINDER OF THE NIGHT WHICH PT AGREED TO. WILL CONTINUE TO MONITOR URINE OUTPUT.
[2020-08-16] MEDS: IPRATROPIUM INHALER (ATROVENT) 12.9 GM INH PRN (02:03)
[2020-08-16] MEDS: RT-ALBUTEROL INHALER HFA (VENTOLIN HFA) 18 GM IH SCH ×6 (02:03→22:47)
[2020-08-16] MEDS: IPRATROPIUM INHALER (ATROVENT) 12.9 GM INH SCH ×6 (02:04→22:48)
[2020-08-16 05:06] LABS: BASOPHILS % (AUTO) 0 % (0-10); EOSINOPHILS % (AUTO) 0 % (0-10); HEMOGLOBIN 12.9 g/dL (11.5-16.0); MONOCYTES # (AUTO) 0.5 10^3/uL (0.0-1.0); MONOCYTES % (AUTO) 6 % (0-12)
[2020-08-16 05:09] LABS: HEMATOCRIT 40 % (35-52); LYMPHOCYTES % (AUTO) 14 % (12-44); MEAN CORPUSCULAR HEMOGLOBIN 30 pg (25-34); MEAN CORPUSCULAR HGB CONC 33 g/dL (32-36); MEAN CORPUSCULAR VOLUME 93 fL (80-99); MEAN PLATELET VOLUME 10.4 fL (9.0-12.2); NEUTROPHILS # (AUTO) 5.8 10^3/uL (1.8-7.8); NEUTROPHILS % (AUTO) 79 % (42-75); PLATELET COUNT 129 10^3/uL (130-400); WHITE BLOOD COUNT 7.4 10^3/uL (4.3-11.0)
[2020-08-16 05:17] LABS: CHLORIDE 109 MMOL/L (98-107); POTASSIUM 3.4 MMOL/L (3.6-5.0); SODIUM 143 MMOL/L (135-145)
[2020-08-16 05:18] LABS: CALCIUM 8.4 MG/DL (8.5-10.1)
[2020-08-16 05:19] LABS: GLUCOSE 113 MG/DL (70-105)
[2020-08-16 05:20] LABS: CARBON DIOXIDE 24 MMOL/L (21-32)
[2020-08-16 05:23] LABS: CREATININE SERUM 0.56 MG/DL (0.60-1.30); GFR ESTIMATED > 60
[2020-08-16 05:24] LABS: BUN/CREATININE RATIO 18
--- NOTE | 2020-08-16 06:34 | Pulmonary Progress Note ---
Subjective Time Seen by a Provider: 06:30 Subjective/Events-last exam PT is doing better. Sepsis Event Evaluation Height, Weight, BMI Height: 5'2.00" Weight: 182lbs. oz. 82.547484vm; 31.25 BMI Method:Stated Focused Exam Lactate Level 08/14/20 07:51: Lactic Acid Level 2.61*H 08/14/20 10:13: Lactic Acid Level 1.25 Time of Focused Exam: 08:20 Exam Exam Vital Signs Date Time Temp Pulse Resp B/P (MAP) Pulse Ox O2 Delivery O2 Flow Rate FiO2 08/16/20 03:49 36.7 82 16 180/77 (111) 96 Nasal Cannula 4.00 08/16/20 02:04 93 High Flow N/C 3.50 08/16/20 00:00 36.4 87 16 157/70 (99) 95 Nasal Cannula 4.00 08/15/20 22:13 95 High Flow N/C 3.50 08/15/20 21:35 Nasal Cannula 4.00 08/15/20 20:00 36.5 85 18 175/77 (109) 93 Nasal Cannula 4.00 08/15/20 18:49 95 High Flow N/C 3.50 08/15/20 16:00 180/80 (113) 08/15/20 14:44 High Flow N/C 4.00 08/15/20 14:06 96 High Flow N/C 3.50 08/15/20 14:00 87 20 173/76 (108) 95 Nasal Cannula 5.00 08/15/20 13:00 93 21 162/71 (101) 93 Nasal Cannula 5.00 08/15/20 13:00 93 08/15/20 12:16 36.3 08/15/20 12:00 90 21 150/75 (100) 94 Nasal Cannula 5.00 08/15/20 11:00 87 18 160/84 (109) 93 Nasal Cannula 5.00 08/15/20 10:00 88 22 193/87 (122) 96 Nasal Cannula 5.00 08/15/20 09:29 94 High Flow N/C 4.00 08/15/20 09:00 98 Nasal Cannula 5.00 08/15/20 09:00 94 24 199/90 (126) 96 Nasal Cannula 5.00 2/4/21 08:07 36.1 08/15/20 08:00 84 24 173/107 (129) 96 Nasal Cannula 5.00 08/15/20 07:00 87 17 172/80 (110) 93 Nasal Cannula 5.00 08/15/20 07:00 87 08/15/20 06:38 94 High Flow N/C 4.00 08/15/20 06:35 Nasal Cannula 5.00 I & O 08/16/20 07:00 Intake Total 350 ml Output Total 850 ml Balance -500 ml Height & Weight Height: 5'2.00" Weight: 182lbs. oz. 82.162563qx; 31.25 BMI Method:Stated General Appearance: Other (Alert to tactile stimulation only.) HEENT: PERRL/EOMI, Normal ENT Inspection, Pharynx Normal, Other (Protecting airway) Neck: Normal Inspection, Supple Respiratory: Decreased Breath Sounds Cardiovascular: Regular Rate, Rhythm Capillary Refill: Less Than 3 Seconds Gastrointestinal: normal bowel sounds, non tender, soft Extremity: Non Tender, Swelling, Other (Twni right leg) Neurologic/Psychiatric: Other (Initially obtunded but responsive to tactile stimulation. On BiPAP mentation improved alert and oriented x2 with cranial nerves grossly intact and coordinated spontaneous movement of all extremitie. ) Results Lab Laboratory Tests 08/14/20 07:42 08/14/20 07:51 08/15/20 03:25 08/16/20 04:43 Assessment/Plan Assessment/Plan Acute respiratory failure-- much improved -Influenza is negative -Echo pending -Titrate oxygen down Metabolic encephalopathy -- much improved -UDS is positive for Benzos and TCAs -Monitor CHF -Monitor Pt is ok from pulmonary standpoint for discharge. NORM PINTO DO Aug 16, 2020 06:34
--- NOTE | 2020-08-16 06:39 | NUR ---
THIS RN CONTACTED DR CASILLAS AND NOTIFIED HER THAT PT REMOVED MELO, RECEIVED ORDERS TO LEAVE OUT AND CONTINUE TO MONITOR.
[2020-08-16] MEDS: hydrALAZINE (APESOLINE) 20 MG/ML VIAL IV PRN ×2 (06:47→13:48)
[2020-08-16] MEDS ORDERED: KCL 20 MEQ TAB (K-DUR) PO NR (08:00)
[2020-08-16] MEDS: LEVOTHYROXINE 75 MCG (LEVOTHROID) TABLET PO SCH (08:13)
[2020-08-16] MEDS: LORATADINE (CLARITIN) 10 MG TAB PO SCH (08:13)
[2020-08-16] MEDS: toPIRamate 25 MG (TOPAMAX) TAB PO SCH (08:14)
[2020-08-16] MEDS: PANTOPRAZOLE 20 MG TABLET (PROTONIX) PO SCH (08:14)
[2020-08-16] MEDS: MONTELUKAST 10 MG (SINGULAIR) TAB PO SCH (08:14)
[2020-08-16] MEDS: ENALAPRIL 10 MG (VASOTEC) TAB PO SCH (08:14)
[2020-08-16] MEDS: carBAMazepine 200 MG (TEGretol) TAB PO SCH ×2 (08:15→20:49)
[2020-08-16] MEDS: HYDROCHLOROTHIAZIDE 25 MG (HCTZ) TAB PO SCH (08:22)
[2020-08-16] MEDS: ROFLUMILAST 500 MCG TAB (DALIRESP) PO SCH (08:23)
--- NOTE | 2020-08-16 11:42 | NUR ---
"RD ASSESSMENT PMHx: COPD; HTN; HLD; CHF; seizure disorder; hypothyroidism; fibromyalgia; PT INTERACTION: Pt was semi-awake and pleasant during nutrition assessment. Note pt had momemnts of confusion and would repeat the same answer to different questions. Pt states current appetite is not good. Note avg PO intake <25% x1d, per chart review. Pt states following a regular diet at home, and has no issues with chewing/swallowing food. Pt states no recent issues with n/v/c/d, and that she is unsure of when her last BM was. Note pt not currently on bowel regimen per chart review. Pt states no recent wt changes. Note unable to determine recent wt hx, per chart review. Est. kcal needs: 7623-3105 kcal | 15-18 kcal/kg Est. Pro needs: 79-99 g Pro | 0.8-1.0 g Pro/kg PES STATEMENT: Inadequate oral intake (NI-2.1) related to loss of appetite, as evidenced by pt interview, and avg PO intake <25% x1d. INTERVENTION: Continue with current diet order of Heart Healthy diet. Add Ensure Enlive (vary) to meals TID, for increased kcal intake. Provides 350 kcal and 20 g Pro per serving. Encouraged pt to eat when able. Will continue to follow and reassess as pt needs, intake, and status change. Kris FULLER, MS RD LD [phone] cell"
[2020-08-16 11:50] LABS: ABG BASE EXCESS 0.7 MMOL/L (-2.5-2.5); ABG OXYGEN SATURATION 88 % (94-100); ABG PCO2 43 MMHG (35-45); ABG PH 7.38 (7.37-7.43); ABG PO2 54 MMHG (79-93); ABG TCO2 26.8 MMOL/L (21.0-31.0); ALLENS TEST YES-POS; INSPIRED O2 3L; PATIENT TEMP 35.5; VENTILATOR NO
--- NOTE | 2020-08-16 12:17 | NUR ---
Initial Visit by PREric Martel. reported that the pt did not engage much in conversation and stated she was not feeling well. Mechatronics Technologist offered prayer and respected pt's need for rest.
[2020-08-16] MEDS ORDERED: ETOMIDATE IV SOLN 20 MG/10 ML VIAL IV ONE (12:52)
[2020-08-16] MEDS ORDERED: IOHEXOL 350 MG/ML 100 ML (OMNIPAQUE 350) VIAL IV ONE (14:15)
[2020-08-16] MEDS ORDERED: HOLD METFORMIN - RECEIVED CONTRAST 20 ML VIAL IV SCH (14:15)
[2020-08-16 14:19] LABS: ABG OXYGEN SATURATION 98 % (94-100); ABG PCO2 42 MMHG (35-45); ABG PO2 103 MMHG (79-93); ABG TCO2 26.7 MMOL/L (21.0-31.0)
[2020-08-16 14:20] LABS: ALLENS TEST YES-POS; INSPIRED O2 3L; PATIENT TEMP 36.3; VENTILATOR NO
[2020-08-16] MEDS ORDERED: cefTRIAXone FOR IV USE 1,000 MG in WATER (STERILE) FOR INJECTION 10 ML IV SCH (14:30)
--- NOTE | 2020-08-16 14:47 | Diagnostic Imaging Report ---
PROCEDURE: CT head w/o r/o stroke. TECHNIQUE: Multiple contiguous axial images were obtained through the brain without the use of intravenous contrast. Auto Exposure Controls were utilized during the CT exam to meet ALARA standards for radiation dose reduction. INDICATION: Altered mental status and stroke symptoms. COMPARISON: 08/14/2020. FINDINGS: Previous to the similar study, there is prominence of ventricles and sulci with encephalomalacia in the left frontal lobe. There is no evidence of intracranial hemorrhage. No abnormal mass effect or shift of midline structures is identified. There is dense atherosclerotic calcification within distal internal carotid arteries, bilaterally. No new abnormality is detected. IMPRESSION: Encephalomalacia of left frontal lobe with stable chronic findings elsewhere in the brain. There is no CT evidence of acute intracranial abnormality. Dictated by: Dictated on workstation # [id number]
--- NOTE | 2020-08-16 14:51 | NUR ---
CM/SS visited with the patient for social service consult. This sw received referral for possible home health or in home caregivers. The patient's nurse reports that the patient has been having some agitation but they were able to clean her up and get her in bed. The patient was confused at time of visit. She was unable to track with conversation. The patient's was present during second visit with patient. Home: The patient lives at home with her , Prem. The patient can walk around the house but also has a scooter to get around outside. The patient's also uses a power scooter. The patient reports that she has multiple fall at home. She does not know how often she falls but states "I fall alot". CM/SS discussed home safety with the patient's regarding multiple falls. The patient reports he feels she is safe to return home and stated "I would just like her to be home with me". DME/Equipment: The patient has a power scooter and ramp. She does not wear oxygen but is having a home o2 study to see if she qualifies. The patient's reports that they use [id number] in [place]. CM/SS faxed H&P and face sheet to agency. CM/SS spoke with Ashlee to inform her it could be Wednesday for discharge. Home Health: The patient's chose [facility]. CM/SS will send referral. Caregivers: The patient's has caregiver from [id number] but they cannot help the patient's . The patient is on a wait list to get a caregiver through Medicaid. CM/SS will continue to follow.
--- NOTE | 2020-08-16 15:25 | Progress Note ---
Subjective Subjective/Events-last exam Afebrile, states she is feeling great and wants to go home. She is still using 4 lpm supplemental oxygen and was not on supplemental oxygen at home. Focused Exam Lactate Level 08/14/20 07:51: Lactic Acid Level 2.61*H 08/14/20 10:13: Lactic Acid Level 1.25 Time of Focused Exam: 08:20 Objective Exam Last Set of Vital Signs Vital Signs Date Time Temp Pulse Resp B/P (MAP) Pulse Ox O2 Delivery O2 Flow Rate FiO2 08/16/20 14:04 86 18 146/71 (96) 96 Nasal Cannula 3.00 08/16/20 12:34 36.2 08/14/20 21:00 40 Capillary Refill : Less Than 3 SecondsLess Than 3 Seconds I&O Intake and Output 08/16/20 00:00 Intake Total 350 ml Output Total 1570 ml Balance -1220 ml Intake Oral 350 ml Output Urine Total 1570 ml General: Alert, No Acute Distress Lungs: Clear to Auscultation, Normal Air Movement Heart: Regular Rate, No Murmurs Abdomen: Normal Bowel Sounds, Soft Neuro: Normal Speech Psych/Mental Status: Other (oriented to self, location and month but not year, states it is 52 and she doesn't know why we are all stuck in 52) Results/Procedures Lab Laboratory Tests 08/16/20 04:43: White Blood Count 7.4, Red Blood Count 4.25, Hemoglobin 12.9, Hematocrit 40, Mean Corpuscular Volume 93, Mean Corpuscular Hemoglobin 30, Mean Corpuscular Hemoglobin Concent 33, Red Cell Distribution Width 13.7, Platelet Count 129L, Mean Platelet Volume 10.4, Immature Granulocyte % (Auto) 1, Neutrophils (%) (Auto) 79H, Lymphocytes (%) (Auto) 14, Monocytes (%) (Auto) 6, Eosinophils (%) (Auto) 0, Basophils (%) (Auto) 0, Neutrophils # (Auto) 5.8, Lymphocytes # (Auto) 1.0, Monocytes # (Auto) 0.5, Eosinophils # (Auto) 0.0, Basophils # (Auto) 0.0, Immature Granulocyte # (Auto) 0.1, Sodium Level 143, Potassium Level 3.4L, Chloride Level 109H, Carbon Dioxide Level 24, Anion Gap 10, Blood Urea Nitrogen 10, Creatinine 0.56L, Estimat Glomerular Filtration Rate > 60, BUN/Creatinine Ratio 18, Glucose Level 113H, Calcium Level 8.4L 08/16/20 11:40: Blood Gas Puncture Site RA, Blood Gas Patient Temperature 35.5, Arterial Blood pH 7.38, Arterial Blood Partial Pressure CO2 43, Arterial Blood Partial Pressure O2 54L, Arterial Blood HCO3 25, Arterial Blood Total CO2 26.8, Arterial Blood Oxygen Saturation 88L, Arterial Blood Base Excess 0.7, Best Test YES-POS, Blood Gas Ventilator Setting NO, Blood Gas Inspired Oxygen 3L 08/16/20 14:01: Glucometer 158H 08/16/20 14:10: Blood Gas Puncture Site LR, Blood Gas Patient Temperature 36.3, Arterial Blood pH 7.40, Arterial Blood Partial Pressure CO2 42, Arterial Blood Partial Pressure O2 103H, Arterial Blood HCO3 25, Arterial Blood Total CO2 26.7, Arterial Blood Oxygen Saturation 98, Arterial Blood Base Excess 1.0, Best Test YES-POS, Blood Gas Ventilator Setting NO, Blood Gas Inspired Oxygen 3L Microbiology 08/14/20 Influenza Types A,B Antigen (SUNIL) - Final, Complete 08/14/20 Blood Culture - Preliminary, Resulted No growth 08/14/20 Urine Culture - Final, Complete Escherichia coli Radiology CXR 08/14/20: IMPRESSION: There is bibasilar atelectasis with patchy right lower lobe infiltrate which is a change from a prior study from 11/04/2018. CT head 08/14/20: DRAFT IMPRESSION: Chronic changes, as described. No acute intracranial process is detected. Assessment/Plan Assessment/Plan (1) Acute respiratory failure with hypoxia and hypercapnia Status: Acute Assessment & Plan: Uncertain inciting event. CXR with possible infiltrate, is on ceftriaxone. Possibly sleep apnea with CO2 retention. COVID LYNDA negative, PCR pending. Afebrile, no leukocytosis does not appear to have sepsis. 2/4 improved with bipap overnight, on supplemental oxygen this morning. Denies history of apnea, reports having been tested in the past. 2/5 some confusion today, repeat ABG, continue supplememtal oxygen (2) Altered mental status Status: Acute Assessment & Plan: Secondary to hypercapnia, improving with bipap. CT head okay. TSH okay. No marked electrolyte derangements. 2/5 originally had somnolence, is now alert but intermittently confused and diso riented. Qualifiers: Qualified Codes: R40.0 - Somnolence (3) Respiratory acidosis Status: Acute Assessment & Plan: Severe with pH 7.17 on admit and PCO2 70. Slow to respond to bipap with repeat pH 7.17, bicarb on ABG normal, lactic acid only mildly elevated and resolved quickly. After ICU arrival, repeat ABG with pH improved to 7.25 and pCO2 60, continue bipap. Appreciate Dr. Mcgee's recommendations. 08/15 continued improvement with more bipap overnight, pH 7.34 (4) Urinary tract infection Status: Acute Assessment & Plan: Ceftriaxone. Culture with E coli. Qualifiers: Qualified Codes: N30.00 - Acute cystitis without hematuria (5) COPD (chronic obstructive pulmonary disease) Status: Chronic Assessment & Plan: Resume home daliresp. Albuterol, ipratropium. (6) Hypertension Status: Chronic Assessment & Plan: Resume home medications. Qualifiers: Qualified Codes: I10 - Essential (primary) hypertension (7) Congestive heart failure Status: Chronic Assessment & Plan: Reports history of CHF, no records in clinic chart of recent echo or Cardiology visits, records were requested when she established care. Suspect acute on chronic diastolic dysfunction- BNP elevated, started on IV lasix. Check echo. 08/16 echo with EF 55-65%, left atrium dilated. (8) Hypothyroidism Status: Chronic Assessment & Plan: Resume home levothyroxine (9) Fibromyalgia Status: Chronic Assessment & Plan: Holding any sedating medications for now. (10) Seizure disorder Status: Chronic Assessment & Plan: Resume home carbamazepine. (11) Hypokalemia Status: Acute Assessment & Plan: Replace and follow. (12) DVT prophylaxis Status: Acute Assessment & Plan: Enoxaparin MELANIE CASILLAS MD Aug 16, 2020 15:25
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
[2020-08-16] MEDS: cloNIDine 0.1 MG (CATAPRES) TAB PO SCH ×2 (16:51→20:49)
[2020-08-16] MEDS ORDERED: ACETAMINOPHEN 325 MG TABLET ONE ×2 (17:33→17:36)
[2020-08-16] MEDS: ACETAMINOPHEN 325 MG TABLET PO PRN ×2 (17:38→17:43)
[2020-08-16] MEDS: ENOXAPARIN 40 MG/0.4 ML (LOVENOX) SYR SQ SCH (17:43)
[2020-08-16] MEDS: PRAZOSIN 1 MG CAPSULE (MINIPRESS) NON-FORMULARY PO SCH (20:49)
[2020-08-16] MEDS: VENlafaxine XR 75 MG (EFFEXOR XR) CAP PO SCH (20:49)
[2020-08-17 00:12] VITALS: BP 150/67
[2020-08-17] MEDS: RT-ALBUTEROL INHALER HFA (VENTOLIN HFA) 18 GM IH SCH ×3 (02:08→10:56)
[2020-08-17] MEDS: IPRATROPIUM INHALER (ATROVENT) 12.9 GM INH SCH ×3 (02:09→10:56)
[2020-08-17 04:57] VITALS: BP 184/83
[2020-08-17] MEDS: hydrALAZINE (APESOLINE) 20 MG/ML VIAL IV PRN (05:41)
[2020-08-17 06:45] LABS: HEMOGLOBIN 13.1 g/dL (11.5-16.0); MEAN PLATELET VOLUME 10.3 fL (9.0-12.2); WHITE BLOOD COUNT 7.2 10^3/uL (4.3-11.0)
[2020-08-17 06:57] LABS: ALBUMIN 3.9 GM/DL (3.2-4.5); CHLORIDE 106 MMOL/L (98-107)
[2020-08-17 06:58] LABS: POTASSIUM 3.4 MMOL/L (3.6-5.0); SODIUM 140 MMOL/L (135-145)
[2020-08-17 06:59] LABS: CALCIUM 8.8 MG/DL (8.5-10.1)
[2020-08-17 07:00] LABS: GLUCOSE 105 MG/DL (70-105); TOTAL PROTEIN 6.2 GM/DL (6.4-8.2)
[2020-08-17 07:01] LABS: CARBON DIOXIDE 22 MMOL/L (21-32)
[2020-08-17 07:02] LABS: BILIRUBIN,TOTAL 0.5 MG/DL (0.1-1.0)
[2020-08-17 07:03] LABS: ALKALINE PHOSPHATASE 97 U/L (40-136); CREATININE SERUM 0.58 MG/DL (0.60-1.30); GFR ESTIMATED > 60
[2020-08-17 07:04] LABS: BUN/CREATININE RATIO 17
[2020-08-17 07:06] LABS: ALANINE AMINOTRANSFERASE 27 U/L (0-55)
[2020-08-17 08:00] VITALS: BP 129/61
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
[2020-08-17] MEDS: MONTELUKAST 10 MG (SINGULAIR) TAB PO SCH (09:24)
[2020-08-17] MEDS: ROFLUMILAST 500 MCG TAB (DALIRESP) PO SCH (09:24)
[2020-08-17] MEDS: cloNIDine 0.1 MG (CATAPRES) TAB PO SCH (09:24)
[2020-08-17] MEDS: LORATADINE (CLARITIN) 10 MG TAB PO SCH (09:24)
[2020-08-17] MEDS: HYDROCHLOROTHIAZIDE 25 MG (HCTZ) TAB PO SCH (09:24)
[2020-08-17] MEDS: toPIRamate 25 MG (TOPAMAX) TAB PO SCH (09:24)
[2020-08-17] MEDS: ENALAPRIL 10 MG (VASOTEC) TAB PO SCH (09:25)
[2020-08-17] MEDS: PANTOPRAZOLE 20 MG TABLET (PROTONIX) PO SCH (09:25)
[2020-08-17] MEDS: LEVOTHYROXINE 75 MCG (LEVOTHROID) TABLET PO SCH (09:25)
[2020-08-17] MEDS: carBAMazepine 200 MG (TEGretol) TAB PO SCH (09:30)
--- NOTE | 2020-08-17 10:00 | NUR ---
DR LEONARD HERE TO ASSESS PATIENT. RELAYED PATIENT'S WISHES AND UPDATE ON PATIENT. PATIENT IS STILL ADAMANT ON LEAVING FACILITY.
[2020-08-17] MEDS ORDERED: QUET300T44 PO (10:29)
[2020-08-17] MEDS: ACETAMINOPHEN 325 MG TABLET PO PRN (10:31)
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
--- NOTE | 2020-08-17 11:30 | NUR ---
pt dropped down to 87% while at rest. pt was placed back on 2LNC at this time. pt got up and walked and did not drop below 93% while walking on 2LNC. Addendum: 08/17/20 at 1130 by KELLEN JACKSON RT Amended: Links added.
[2020-08-17 11:36] VITALS: BP 162/70
--- NOTE | 2020-08-17 14:04 | NUR ---
PATIENT AND SPOUSE EDUCATED THOROUGHLY ON HOME O2, NO SMOKING, CORDS, FALL PREVENTION. FOLLOW -UP APPOINTMENT ON WEDNESDAY, @ 10:00 WITH DAV JOSE. STATES THEY ARE IN PROCESS OF GETTING HOTBED TRANSFER OPERATOR ORE WASHER FOR HELP. THIS RN SPOKE WITH CAREGIVER THEY HAVE AT THIS TIME ON THE PHONE AND SHE STATED WITHIN THE NEXT WEEK SHE SHOULD BE HOTBED TRANSFER OPERATOR.
--- NOTE | 2020-08-17 14:05 | NUR ---
BRENT ABDULLAHI Kris demonstrates understanding of discharge instructions and accurately returns instructions upon questioning. Copy of Post-Discharge Instructions and Medication Discharge Instructions given to PATIENT. BRENT ABDULLAHI Kris is able to manage continuing needs after discharge. Patients belongings returned to PATIENT. Skin dry and intact; no breakdown noted. BRENT ABDULLAHI Kris left floor via WC, accompanied by STAFF.
--- NOTE | 2020-08-20 15:42 | NUR ---
NIGHAT/ANÍBAL update. APS report ID: [id number] DME: NIGHAT/ANÍBAL had set up oxygen for [facility] in [place]; however, the patient went home over the weekend and the nurse set up for [facility].
== END 2020-08-17 14:10 | disposition home health service (06) | DRG 291 ==
LOC: EDUNIT# 07:27 → ER FS 07:28 → ICU 12:25 → 4TH 08-15 16:38
PROVIDERS: ADMIT Family Medicine; ATTEND Internal Medicine
PROC: 5A09357 Assistance with Respiratory Ventilation, Less than 24 Consecutive Hours, Continuous Positive Airway Pressure (ICD-10-PCS; principal; 2020-08-14)
DX: I11.0 Hypertensive heart disease with heart failure (principal); J96.02 Acute respiratory failure with hypercapnia; G93.41 Metabolic encephalopathy; J96.01 Acute respiratory failure with hypoxia; N39.0 Urinary tract infection, site not specified; E87.4 Mixed disorder of acid-base balance; E87.0 Hyperosmolality and hypernatremia; I50.33 Acute on chronic diastolic (congestive) heart failure; J43.9 Emphysema, unspecified; E11.9 Type 2 diabetes mellitus without complications; E03.9 Hypothyroidism, unspecified; M79.7 Fibromyalgia; G40.909 Epilepsy, unspecified, not intractable, without status epilepticus; E87.6 Hypokalemia; E66.01 Morbid (severe) obesity due to excess calories; Z68.36 Body mass index [BMI] 36.0-36.9, adult; B96.20 Unspecified Escherichia coli [E. coli] as the cause of diseases classified elsewhere
CPT/HCPCS: 36415; 51702; 70450; 71045; 71275; 80048; 80053; 80306; 80320; 81000; 82140; 82805; 82962; 83605; 83735; 83880; 84100; 84443; 84484; 85025; 85027; 85610; 85730; 87040; 87077; 87081; 87088; 87186; 87635; 87804; 93005; 93306; 94640; 94660; 94760; 94761; 99291

== ENCOUNTER 2020-09-07 20:45 | Emergency (ER) | payer MEDICAID ==
[~2020-09-07 20:45] MED LIST changes: +ATOR20TA66 PO; +CARB200C6 PO; +DIAZ5TAB49 PO; +DILT240C91 PO; +ENAL20TA16 PO; +IPRA4AER INH; +LEVO75TA6 PO; -LISI-552 PO; +LISI20TA26 PO; +LORA10TA7 PO; +MONT10TA32 PO; +OMEP20CA18 PO; +PRAZ2CAP2 PO; +QUET100T33 PO; +QUET300T19 PO; +ROFL500T PO; +RT-ALBUINH INH; +TOPI50TA13 PO; +UMEC1BLS INH; +VENL75CA93 PO
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
[2020-09-07] MEDS ORDERED: HYDROcodone/APAP 5 MG/325 MG (LORTAB) TAB PO ONE (21:15)
[2020-09-07] MEDS ORDERED: ACHD5005 PO (21:15)
[2020-09-07 21:21] VITALS: BP 169/63
--- NOTE | 2020-09-07 21:23 | Diagnostic Imaging Report ---
HISTORY: Fall with right wrist pain. TECHNIQUE: 3 views of the right wrist. COMPARISON: None. FINDINGS: There is a mildly impacted, mildly posteriorly and laterally displaced fracture through the distal right radial metaphysis. There is mild dorsal angulation. There does appear to be some extension of the articular surface on the medial side. There is a laterally displaced transverse fracture through the base of the ulnar styloid process as well. Otherwise alignment appears normal. There is moderate soft tissue swelling about the wrist. IMPRESSION: 1. Mildly impacted, displaced and angulated fracture of the distal right radius. 2. Mildly displaced fracture of the ulnar styloid process. Dictated by: Dictated on workstation # [id number]
== END 2020-09-07 21:23 | disposition home or self-care (01) ==
LOC: EDUNIT# 20:45 → ER FS 20:49
DX: S52.391A Other fracture of shaft of radius, right arm, initial encounter for closed fracture (principal); S52.611A Displaced fracture of right ulna styloid process, initial encounter for closed fracture; I25.2 Old myocardial infarction; I10 Essential (primary) hypertension; J44.9 Chronic obstructive pulmonary disease, unspecified; F31.9 Bipolar disorder, unspecified; G40.909 Epilepsy, unspecified, not intractable, without status epilepticus; Z82.49 Family history of ischemic heart disease and other diseases of the circulatory system; W07.XXXA Fall from chair, initial encounter
CPT/HCPCS: 29125; 73110

== ENCOUNTER → 2020-09-23 | Outpatient (CLI) | payer MEDICAID ==
[~2020-09-23] MED LIST changes: +ACHD5005 PO
--- NOTE | 2020-09-23 17:50 | Diagnostic Imaging Report ---
INDICATION: Right wrist fracture AP, oblique and lateral views of the right wrist are obtained with comparison made to the study of 09/07/2020. FINDINGS: The bony detail is limited due to overlying fiberglass cast material. There is continued mild displacement of intra-articular fracture in the distal radius with mildly displaced ulnar styloid fracture. Alignment is stable. There may be mild increase in bridging callus since previous study. No new abnormality is detected. IMPRESSION: Stable overall appearance of intra-articular fractures of distal radius and ulna with possible slight overall increase in callus. Dictated by: Dictated on workstation # [id number]
== END ==
LOC: RAD FS 14:51
PROVIDERS: ATTEND Nurse Practitioner
DX: S52.531A Colles' fracture of right radius, initial encounter for closed fracture (principal); S52.611A Displaced fracture of right ulna styloid process, initial encounter for closed fracture; X58.XXXA Exposure to other specified factors, initial encounter
CPT/HCPCS: 73100

== ENCOUNTER → 2020-10-07 | Outpatient (CLI) | payer MEDICAID ==
--- NOTE | 2020-10-07 11:47 | Diagnostic Imaging Report ---
EXAMINATION: Right wrist at 10:50 a.m. INDICATION: Follow-up fracture. In the interval since the prior exam of 09/23/2020 the fiberglass cast has been removed. The fractures involving the distal radius and ulna seen previously are again evident. There is increased density about the fracture sites consistent with callus formation. The amount of callus formation may be slightly greater than on the prior exam. The fracture involving the distal radius is still clearly evident. The avulsion fracture of the ulnar styloid noted previously is also unchanged. The soft tissues are unremarkable. IMPRESSION: 1. There are healing fractures of the distal radius and ulna. When compared to the prior study there has been no adverse change. 2. The fiberglass cast seen previously has been removed. Dictated by: Dictated on workstation # [id number]
== END ==
LOC: RAD FS 10:49
PROVIDERS: ATTEND Nurse Practitioner
DX: S52.611D Displaced fracture of right ulna styloid process, subsequent encounter for closed fracture with routine healing (principal); S52.531D Colles' fracture of right radius, subsequent encounter for closed fracture with routine healing; X58.XXXD Exposure to other specified factors, subsequent encounter
CPT/HCPCS: 73100

== ENCOUNTER → 2020-10-21 | Outpatient (CLI) | payer MEDICAID ==
--- NOTE | 2020-10-21 12:02 | Diagnostic Imaging Report ---
INDICATION: Follow-up fracture. COMPARISON: 10/07/2020 FINDINGS: Frontal and lateral radiograph views of the right wrist were obtained and again show nonacute transverse oriented intra-articular fracture of the distal radius. Fracture fragments are in stable alignment. There is some sclerosis about the fracture site and probable early bridging callus formation. Transverse oriented sclerotic line of the distal ulna is also noted and may be on the basis of healing fracture. No new acute fracture dislocation of right wrist is seen. Joint spaces are maintained. No unexpected radiopaque foreign bodies are seen. IMPRESSION: 1. Redemonstration partially healed nonacute fractures of the right wrist as described above. Dictated by: Dictated on workstation # [id number]
== END ==
LOC: RAD FS 10:51
PROVIDERS: ATTEND Nurse Practitioner
DX: S52.611D Displaced fracture of right ulna styloid process, subsequent encounter for closed fracture with routine healing (principal); S52.531D Colles' fracture of right radius, subsequent encounter for closed fracture with routine healing; X58.XXXD Exposure to other specified factors, subsequent encounter
CPT/HCPCS: 73100

== ENCOUNTER 2022-12-07 14:05 | Emergency (ER) | payer MEDICAID ==
[~2022-12-07 14:05] MED LIST changes: +ALBU8.5H6 INH; +ENAL-70 PO; -ENAL20TA16 PO; +MONT-40 PO; -MONT10TA32 PO; -RT-ALBUINH INH; +TOPI-241 PO; -TOPI50TA13 PO
[2022-12-07] MEDS ORDERED: HYDROcodone/APAP 5 MG/325 MG (LORTAB) TAB PO ONE (14:15)
--- NOTE | 2022-12-07 14:15 | ED Lower Extremity ---
General Chief Complaint: Lower Extremity Stated Complaint: LT LEG INJ Source: patient Exam Limitations: no limitations History of Present Illness Date Seen by Provider: December 07, 2022 Time Seen by Provider: 14:07 Initial Comments 62-year-old female with past medical history of COPD and CHF most notably coming in due to left leg pain. She tripped last Wednesday, fell onto her knee and larsen. Having constant, throbbing pain. It became swollen and bruised afterwa rds. Has been taking Advil for pain which she last took last night. Has been putting weight on it and walking. Does not take any blood thinners. Did not hit her head or pass out, denies any back pain or neck pain, no weakness or numbness. Allergies and Home Medications Allergies Coded Allergies: No Known Drug Allergies (Unverified , 08/14/20) Patient Home Medication List Home Medication List Reviewed: Yes Albuterol Sulfate (Ventolin Hfa) 1 Puff Puff, 2 PUFF INH Q4H, (Reported) Entered as Reported by: VARUN ANG on 08/14/201552 Albuterol/Ipratropium (Combivent Respimat Inhal [place]) 4 Gm Aero, 1 PUFF INH QID, (Reported) Entered as Reported by: VARUN ANG on 08/14/201552 Atorvastatin Calcium (Atorvastatin Calcium) 20 Mg Tablet, 20 MG PO HS, (Reported) Entered as Reported by: VARUN ANG on 08/14/201552 Carbamazepine (Carbamazepine) 200 Mg Cpmp.12hr, 200 MG PO BID, (Reported) Entered as Reported by: VARUN ANG on 08/14/201552 Diazepam (Diazepam) 5 Mg Tablet, 5 MG PO BID PRN for ANXIETY, (Reported) Entered as Reported by: VARUN ANG on 08/14/201552 Diltiazem HCl (Diltiazem 24Hr ER) 240 Mg Cap.er.24h, 240 MG PO DAILY, (Reported) Entered as Reported by: VARUN ANG on 08/14/201552 Enalapril Maleate (Enalapril Maleate) 20 Mg Tablet, 20 MG PO DAILY, (Reported) Entered as Reported by: VARUN ANG on 08/14/201552 Hydrocodone/Acetaminophen (Hydrocodone-Acetamin 5-325 mg) 1 Each Tablet, 1 TAB PO Q8H PRN for PAIN-MODERATE (5-7) Prescribed by: KRIS HINOJOSA on 09/07/202115 Levothyroxine Sodium (Levothyroxine Sodium) 75 Mcg Tablet, 75 MCG PO DAILY, (Reported) Entered as Reported by: VARUN ANG on 08/14/201552 Loratadine (Loratadine) 10 Mg Tablet, 10 MG PO DAILY, (Reported) Entered as Reported by: VARUN ANG on 08/14/201552 Montelukast Sodium (Montelukast Sodium) 10 Mg Tablet, 10 MG PO DAILY, (Reported) Entered as Reported by: VARUN ANG on 08/14/201552 Omeprazole (Omeprazole) 20 Mg Capsule.dr, 20 MG PO DAILY, (Reported) Entered as Reported by: VARUN ANG on 08/14/201552 Prazosin HCl (Prazosin HCl) 2 Mg Capsule, 2 MG PO HS, (Reported) Entered as Reported by: VARUN ANG on 08/14/201552 Quetiapine Fumarate (Quetiapine Fumarate) 300 Mg Tablet, 300 MG PO HS Prescribed by: JERICHO LEONARD on 08/17/20 1029 Roflumilast (Daliresp) 500 Mcg Tablet, 500 MCG PO DAILY, (Reported) Entered as Reported by: VARUN ANG on 08/14/201552 Topiramate (Topiramate) 50 Mg Tablet, 75 MG PO DAILY, (Reported) Entered as Reported by: VARUN ANG on 08/14/201552 Umeclidinium Brm/Vilanterol Tr (Anoro Ellipta 62.5-25 Mcg INH) 1 Each Blst.w.dev, 1 PUFF INH DAILY, (Reported) Entered as Reported by: VARUN ANG on 08/14/201552 Venlafaxine HCl (Venlafaxine HCl ER) 75 Mg Cap.er.24h, 75 MG PO HS, (Reported) Entered as Reported by: VARUN ANG on 08/14/201552 Review of Systems Constitutional: No fever EENTM: no symptoms reported Respiratory: no symptoms reported Cardiovascular: no symptoms reported Gastrointestinal: no symptoms reported Genitourinary: no symptoms reported Musculoskeletal: see HPI Past Nmdqhxq-Fzsjbt-Frzyqb Hx Patient Social History Tobacco Use?: No Smoking Status: Former Smoker Use of E-Cig and/or Vaping dev: No Substance use?: No Alcohol Use?: No Immunizations Up To Date Tetanus Booster (TDap): Unknown Seasonal Allergies Seasonal Allergies: No Past Medical History Surgeries: Yes Hysterectomy, Tonsillectomy Respiratory: Yes COPD, Emphysema Cardiac: Yes Heart Attack, Hypertension Neurological: Yes Seizure Disorder Genitourinary: Yes Kidney Stones Gastrointestinal: No Musculoskeletal: No Endocrine: Yes Diabetes, Non-Insulin dep HEENT: No Cancer: No Psychosocial: Yes Sleep Difficulties, Bipolar Integumentary: No Blood Disorders: No Family Medical History Heart Disease, Hypertension Physical Exam Vital Signs Vital Signs - First Documented 12/07/22 14:14 Temp 36.3 Pulse 74 Resp 16 B/P (MAP) 142/77 (98) Pulse Ox 95 O2 Delivery Room Air Capillary Refill : Height, Weight, BMI Height: 5'2.00" Weight: 182lbs. oz. 82.963080pj; 31.25 BMI Method:Stated General Appearance: WD/WN, no apparent distress HEENT: PERRL/EOMI, normal ENT inspection, pharynx normal Neck: non-tender, full range of motion, supple, normal inspection Cardiovascular: regular rate, rhythm, no edema, no murmur Respiratory: chest non-tender, lungs clear, normal breath sounds, no respiratory distress, no accessory muscle use Gastrointestinal: normal bowel sounds, non tender, soft; No distended, No guarding Back: normal inspection, no CVA tenderness, no vertebral tenderness Hips: bilateral hip non-tender, bilateral hip normal inspection, bilateral hip normal range of motion, bilateral hip no evidence of injury Legs: left leg other (Left knee and larsen with some bruising and swelling, pain to palpation along the anterior tibia and anterior patella) Neurologic/Tendon: normal sensation, normal motor functions, normal tendon functions Neurologic/Psychiatric: no motor/sensory deficits, alert, normal mood/affect Skin: normal color, warm/dry Progress/Results/Core Measures Results/Orders My Orders Orders - ADAIR FLEMING MD Hydrocodone/Apap 5/325 Tablet (Lortab 5 (12/07/22 14:15) Knee 3 View Left (12/07/22 14:12) Tibia Fibula 2 View Left (12/07/22 14:12) Medications Given in ED Current Medications Medications Dose Ordered Sig/[place] Route Start Time Stop Time Status Last Admin Dose Admin Acetaminophen/ Hydrocodone Bitart 1 ea ONCE ONCE PO 12/07/22 14:15 12/07/22 14:16 DC 12/07/22 14:24 1 EA Vital Signs/I&O 12/07/22 12/07/22 14:14 14:43 Temp 36.3 36.3 Pulse 74 74 Resp 16 16 B/P (MAP) 142/77 (98) 142/77 Pulse Ox 95 95 O2 Delivery Room Air Room Air Progress Progress Note : Progress Note 63-year-old female with above history coming in due to left leg pain after falling and hitting it on the ground. ABCs were intact and vitals were stable on presentation. Physical exam with bruising and swelling along her left knee and larsen. X-ray of the left knee and tibia/fibula ordered and interpreted by me showing no obvious fracture or dislocation. She likely does have some soft tissue swelling and bruising. I will have her follow-up with orthopedics as an outpatient. We wrapped her in an Hector bandage here for comfort and will recommend typical evqg-onx-ndiykki medications for pain. Given that the swelling and pain started immediately after hitting it on the ground, much less likely to be a DVT, formal ultrasound therefore not ordered. I did do a uegxk-zl-exff ultrasound and her popliteal vessels are fully compressible which is reassuring. She has been walking on it for several days, and occult fracture also unlikely. I believe she is otherwise stable for discharge with outpatient follow-up. She was sent home with strict return precautions. Diagnostic Imaging Diagonstic Imaging: Xray (left knee and tib/fib) Comments NAME: BRENT ABDULLAHI [facility] REC#: [id number] PT STATUS: REG ER : 1960 PHYSICIAN: ADAIR FLEMING MD ADMIT DATE: 12/07/22/ER FS Draft Date of Exam:12/07/22 KNEE 3 VIEW LEFT Indication: Fall with left knee pain and swelling. Comparison: None. Discussion: Three views of left knee were obtained. Diffuse soft tissue swelling noted. Diffuse vascular calcifications. No effusion. Moderate degenerative disease. No fracture or dislocation. Impression: 1. Diffuse left knee soft tissue swelling. No fracture. Dictated on workstation # [id number] Dict: 12/07/22 1430 Trans: 12/07/[address] [facility] [id number] Interpreted by: ALISIA OLIVA MD Electronically signed by: LATA VIA [facility] [place], [place] NAME: BRENT ABDULLAHI [facility] REC#: [id number] PT STATUS: REG ER : 1960 PHYSICIAN: ADAIR FLEMING MD ADMIT DATE: 12/07/22/ER FS Draft Date of Exam:12/07/22 TIBIA FIBULA 2 VIEW LEFT Indication: Fall with left lower leg pain and swelling. Comparison: Left knee same day. Discussion: Three views of left tibia and fibula were obtained. Diffuse soft tissue swelling noted. Vascular calcifications are noted. No fracture or dislocation. Focal soft tissue thickening along the anterior larsen. Impression: 1. Anterior left larsen soft tissue swelling focally. There is mild diffuse soft tissue swelling additionally. No fracture. Dictated on workstation # [id number] Dict: 12/07/22 1431 Trans: 12/07/221434 [facility] [id number] Interpreted by: ALISIA OLIVA MD Electronically signed by: Departure Impression Primary Impression: Contusion of left tibia Additional Impression: Contusion of left knee Qualified Codes: S80.02XA - Contusion of left knee, initial encounter Disposition: HOME, SELF-CARE Condition: Stable Departure-Patient Inst. Decision time for Depature: 14:45 Referrals: BRITANY CHOI APRN (PCP) Primary Care Physician [facility] (Family) Primary Care Physician YECENIA NEGRO Patient Instructions: Minor Contusion ED Add. Discharge Instructions: Fortunately nothing is broken or dislocated. Unfortunately, your bones in your larsen and knee are bruised, and this will take some time to get better. Follow- up with your regular doctor or Adrian Negro here in town if you are not showing improvement in the next couple of weeks. Take Tylenol and/or Aleve as needed for pain. Work/School Note: Family Work Note, Patient Received Medical Care In the Emergency Department On: December 07, 2022 Patient Will Be Able to Return to Work/School On: December 08, 2022 Work Release Form Date Seen in the Emergency Department: December 07, 2022 Return to Work: December 09, 2022 Restrictions: No Restrictions ADAIR FLEMING MD December 07, 2022 14:15
--- NOTE | 2022-12-07 14:33 | Diagnostic Imaging Report ---
Indication: Fall with left knee pain and swelling. Comparison: None. Discussion: Three views of left knee were obtained. Diffuse soft tissue swelling noted. Diffuse vascular calcifications. No effusion. Moderate degenerative disease. No fracture or dislocation. Impression: 1. Diffuse left knee soft tissue swelling. No fracture. Dictated by: Dictated on workstation # [id number]
--- NOTE | 2022-12-07 14:35 | Diagnostic Imaging Report ---
Indication: Fall with left lower leg pain and swelling. Comparison: Left knee same day. Discussion: Three views of left tibia and fibula were obtained. Diffuse soft tissue swelling noted. Vascular calcifications are noted. No fracture or dislocation. Focal soft tissue thickening along the anterior larsen. Impression: 1. Anterior left larsen soft tissue swelling focally. There is mild diffuse soft tissue swelling additionally. No fracture. Dictated by: Dictated on workstation # [id number]
[2022-12-07 14:43] VITALS: BP 142/77
== END 2022-12-07 14:49 | disposition home or self-care (01) ==
LOC: EDUNIT# 14:05 → ER FS 14:06
DX: S80.12XA Contusion of left lower leg, initial encounter (principal); S80.02XA Contusion of left knee, initial encounter; Z87.891 Personal history of nicotine dependence; W01.198A Fall on same level from slipping, tripping and stumbling with subsequent striking against other object, initial encounter
CPT/HCPCS: 73562; 73590